=== PATIENT | female | born 2000 | race Caucasian/White ===

== ENCOUNTER → 2022-03-01 13:25 | Outpatient (BNVA) | payer OTHER, SELFPAY | PROVIDERS: Visit Provider Nurse Practitioner Women's Health | DX: N92.6 Irregular menstruation, unspecified (principal) | CPT/HCPCS: 81025 ==

== ENCOUNTER → 2022-03-09 07:51 | Outpatient (BNVA) | payer OTHER, SELFPAY | PROVIDERS: Visit Provider Nurse Practitioner Women's Health | DX: Z36.87 Encounter for antenatal screening for uncertain dates (principal) | CPT/HCPCS: 76801; 76817 ==

== ENCOUNTER → 2022-03-17 13:13 | Outpatient (BNVA) | payer OTHER, SELFPAY | PROVIDERS: Visit Provider Nurse Practitioner Women's Health | DX: Z34.90 Encounter for supervision of normal pregnancy, unspecified, unspecified trimester (principal); F41.9 Anxiety disorder, unspecified; F32.A Depression, unspecified; Z34.80 Encounter for supervision of other normal pregnancy, unspecified trimester; O99.210 Obesity complicating pregnancy, unspecified trimester; Z20.828 Contact with and (suspected) exposure to other viral communicable diseases | CPT/HCPCS: 80307; 82950; 84315; 85027; 86592; 86762; 86787; 86803; 86850; 86900; 87086; 87340; 87806 ==

== ENCOUNTER → 2022-04-07 14:07 | Outpatient (BNVA) | payer OTHER, SELFPAY | PROVIDERS: Visit Provider Obstetrics & Gynecology | DX: Z34.80 Encounter for supervision of other normal pregnancy, unspecified trimester (principal) | CPT/HCPCS: 84315; 87491; 87591; 87661; 88175 ==

== ENCOUNTER → 2022-05-12 13:15 | Outpatient (BNVA) | payer OTHER, SELFPAY | PROVIDERS: Visit Provider Nurse Practitioner Women's Health | DX: Z34.90 Encounter for supervision of normal pregnancy, unspecified, unspecified trimester (principal) | CPT/HCPCS: 82105; 84315 ==

== ENCOUNTER → 2022-06-06 10:59 | Outpatient (BNVA) | payer OTHER, SELFPAY | PROVIDERS: Visit Provider Obstetrics & Gynecology | DX: Z36.87 Encounter for antenatal screening for uncertain dates (principal) | CPT/HCPCS: 76805 ==

== ENCOUNTER → 2022-06-13 13:20 | Outpatient (BNVA) | payer OTHER, SELFPAY | PROVIDERS: Visit Provider Obstetrics & Gynecology | DX: Z34.90 Encounter for supervision of normal pregnancy, unspecified, unspecified trimester (principal) | CPT/HCPCS: 80053; 82570; 84156; 84315; 85025 ==

== ENCOUNTER 2022-06-25 14:10 | Outpatient (CLI) | payer OTHER, SELFPAY ==
[2022-06-25] VITALS (14 sets, daily range): BP systolic 127–164; BP diastolic 73–94; PULSE 56–85; RESP 16; BMI 37.1
[2022-06-25 14:58] LABS: Basophils % 0.3 %; Eosinophils # 0.4 10^3/uL (0.0-0.8); Eosinophils % 2.9 %; Hematocrit 31.9 % (37.0-47.0); Hemoglobin 10.7 g/dL (11.5-15.3); Lymphocytes # 2.1 10^3/uL (0.8-4.8); Lymphocytes % 17.3 %; Mean Corpuscular HGB Conc 33.5 g/dL (30.0-36.0); Mean Corpuscular Hemoglobin 31.9 pg (28.0-34.0); Mean Corpuscular Volume 95.2 fl (81-99); Mean Platelet Volume 10.4 fL (7.4-10.4); Monocytes # 0.7 10^3/uL (0.2-0.9); Monocytes % 5.5 %; Neutrophils # 8.74 10^3/uL (1.8-7.7); Neutrophils % 73.6 %; Nucleated Red Blood Cells % 0 %; Platelet Count 248 10^3/cmm (130-400); Red Blood Count 3.35 10^6/uL (4.1-5.3); Red Cell Distribution Width 12.1 % (12.1-15.1); White Blood Count 11.9 10^3/uL (4.0-10.0)
[2022-06-25 15:08] LABS: Amorphous Sediment Urine TRACE /hpf; Bacteria Urine TRACE /hpf; Bilirubin Urine Neg (Negative); Blood Urine Neg (Negative); Glucose Urine UA Norm (Normal); Ketones Urine 1+ (Negative); Leukocyte Esterase Urine Negative (Negative); Nitrate Urine Negative (Negative); Protein Urine Neg (Negative); RBC Urine RARE /hpf (0-2); Specific Gravity, Urine 1.015 (1.005-1.030); Squamous Epithelial Cell Urine 0-4 /hpf (0-5); Urine Appearance Hazy (CLEAR); Urine Color Yellow (Yellow); Urobilinogen Urine Norm (Negative); WBC Urine RARE /hpf (0-5); pH Urine 7 (5-7)
--- NOTE | 2022-06-25 15:56 | PM.OBTRLD ---
OB L&D Triage Visit Information: Date of evaluation: 06/25/22 Comments/Additional reason(s) for visit: Left sided pain with nausea and vomiting Evaluation: Baseline heart rate: 130 Laboratory results: Laboratory Tests 06/25/22 06/25/22 14:50 14:50 WBC 11.9 H RBC 3.35 L Hgb 10.7 L Hct 31.9 L MCV 95.2 MCH 31.9 MCHC 33.5 RDW 12.1 Plt Count 248 MPV 10.4 Neut % (Auto) 73.6 Lymph % (Auto) 17.3 Keith % (Auto) 5.5 Eos % (Auto) 2.9 Baso % (Auto) 0.3 Neut # (Auto) 8.74 H Lymph # (Auto) 2.1 Keith # (Auto) 0.7 Eos # (Auto) 0.4 Baso # (Auto) 0.0 Nucleated RBC % (a uto) 0 Nucleated RBCs # 0.0 Urine Color Yellow Urine Appearance Hazy A Urine pH 7 Ur Specific Gravit y 1.015 Urine Protein Neg Urine Glucose (UA) Norm Urine Ketones 1+ H Urine Blood Neg Urine Nitrate Negative Urine Bilirubin Neg Urine Urobilinogen Norm Ur Leukocyte Roula ase Negative Urine RBC Rare Urine WBC Rare Ur Squamous Epith Cells 0-4 H Amorphous Sediment Trace Urine Bacteria Trace Vital signs: Vital Signs - 24 hr 06/25/22 14:31 06/25/22 14:40 06/25/22 14:55 Pulse Rate 68 56 L 78 Respiratory Rate Blood Pressure 136/94 127/73 139/77 06/25/22 15:10 06/25/22 15:25 06/25/22 15:40 Pulse Rate 71 62 71 Respiratory Rate Blood Pressure 146/79 131/80 164/89 06/25/22 15:41 06/25/22 14:38 Pulse Rate 75 Respiratory Rate 16 Blood Pressure 150/90 Comments: 22yo C. female at 23.3 wk IUP has been receiving PNC with Dr. Garrido, c/o left sided pain that starts at her breast and extends to pubic area with nausea and vomiting. Pt has been talking BP reading at home and reports elevated office BP readings. Today BP has been elevated on multiple readings as well. Pt admits to occassional HAs but not daily. Pt gives hx of Renal stones (Aug). Her Exam- palpation elicits no pain or guarding on left nor right sides and no CVA tenderness. And lab indicates nothing specific. Discussed with pt need to continue BP monitoring and to start BP med Labetolol 100mg BID, and 81mg ASA daily. Discussed 24hr urine collection. Care MATTHIAS Calculator Estimated Delivery Date Method Current WG Current Estimate 10/19/22 Ultrasound #2 23w 3d Other Estimates 10/16/22 LMP (Certain) 23w 6d 10/26/22 Ultrasound #1 22w 3d Specific Issues/Plans Partner hx of HSV: never had an outbreak; start suppression at 36 weeks unless symptoms ANXIETY/DEPRESSION SIZE >DATES; MATTHIAS based on 7 week sono OBESITY Final Diagnosis Final Diagnosis (1) 23 weeks gestation of : Status: Acute Code(s): Z3A.23 - 23 weeks gestation of (2) Elevated blood pressure complicating in second trimester, antepartum: Plan: 1. Lab- CBC,CMP,24hr urine for Protein and Creatinine. 2. 81mg ASA daily 3. Labetolol 100mg BID 4. F/U 1wk with Dr. Garrido Status: Acute Code(s): O16.2 - Unspecified maternal hypertension, second trimester (3) Nausea/vomiting in : Plan: [place] diet Status: Acute Code(s): O21.9 - Vomiting of , unspecified Coding Level of Care Code Acute Document Management Specialist for Chg Fwd Diagnoses 23 weeks gestation of Z3A.23 Elevated blood pressure complicating in second trimester, antepartum O16.2 Nausea/vomiting in O21.9
[2022-06-25] MEDS: labetalol 200 mg Tablet 100 MG PO (15:59)
[2022-06-25 16:12] LABS: Alanine Aminotransferase 19 U/L (0-33); Albumin Level 3.4 g/dL (3.5-5.2); Alkaline Phosphatase 85 U/L (35-105); Anion Gap 11.1 (5-19); Aspartate Amino Transferase 13 U/L (0-32); Blood Urea Nitrogen 5 mg/dL (6-20); Calcium 9.1 mg/dL (8.5-10.5); Carbon Dioxide 26 mmol/L (22-29); Chloride 97 mmol/L (98-107); Globulin 3.3 g/dL (1.3-4.6); Glomerular Filtration Rate 151.6 mL/min (90-130); Glucose 78 mg/dL (65-115); Osmolality Calculated 268 mOsm/kg (285-295); Potassium 3.1 mmol/L (3.5-5.1); Sodium 131 mmol/L (136-145); Total Bilirubin 0.3 mg/dL (0.15-1.2); Total Protein 6.7 g/dL (6.6-8.7)
== END 2022-06-25 17:18 | disposition home or self-care (01) ==
LOC: OPOB 14:18 → OBGYN 14:19
PROVIDERS: Visit Provider Obstetrics & Gynecology
DX: O26.899 Other specified pregnancy related conditions, unspecified trimester (principal); Z3A.00 Weeks of gestation of pregnancy not specified; R10.9 Unspecified abdominal pain
CPT/HCPCS: 12345; 36415; 80053; 81001; 85025; 99211

== ENCOUNTER 2022-07-12 14:38 | Emergency (ER) | payer OTHER, MEDICAID, SELFPAY ==
[2022-07-12 14:53] VITALS: BP 134/80; PULSE 90; RESP 17; TEMP 36.6; O2SAT 97; BMI 37.1
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
[2022-07-12 17:25] VITALS: PULSE 76; RESP 16; O2SAT 99
[2022-07-12 17:50] VITALS: PULSE 88; RESP 16; O2SAT 97
[2022-07-12] MEDS: clindamycin 150 mg Capsule 300 MG PO (17:55)
[2022-07-12 17:59] VITALS: PULSE 90; RESP 16; O2SAT 100
--- NOTE | 2022-07-13 09:34 | DCPLANNER ---
Addendum entered by Anne Marie Guerra 07/13/22 11:20: solar manager received the following message from general surgery regarding follow up appointment: Due to patient having [facility], please send elsewhere.. Dr. Sharma cannot see [facility] patients at this time.. renal case manager called and explained this to the patient, and faxed patients information to the office of . Patients information will be reviewed, clinic will call patient with appointment information. Original Note: solar manager had message to schedule a follow up appointment for patient with general surgery. solar manager sent patients information to the front office staff at general surgery. Patients information will be printed and reviewed. Clinic will call patient with appointment information.
== END 2022-07-12 18:01 | disposition home or self-care (01) ==
PROVIDERS: Emergency Provider Nurse Practitioner Family
DX: L05.01 Pilonidal cyst with abscess (principal); Z87.891 Personal history of nicotine dependence
CPT/HCPCS: 10080; 99283

== ENCOUNTER 2022-07-31 09:32 | Outpatient (CLI) | payer OTHER, SELFPAY ==
[2022-06-25 14:38] VITALS: RESP 16
[2022-07-31] VITALS (7 sets, daily range): BP systolic 137–142; BP diastolic 63–86; PULSE 70–85; RESP 18; TEMP 36.7; BMI 37.3
[2022-07-31 10:27] LABS: Bacteria Urine 2+ /hpf; Bilirubin Urine Neg (Negative); Blood Urine Neg (Negative); Glucose Urine UA Norm (Normal); Ketones Urine Negative (Negative); Leukocyte Esterase Urine Negative (Negative); Nitrate Urine Negative (Negative); Protein Urine Neg (Negative); Squamous Epithelial Cell Urine 15-25 /hpf (0-5); Sulfosalicylic Acid Urine Negative (Negative); Urine Appearance SL Hazy (CLEAR); Urine Color Yellow (Yellow); Urobilinogen Urine Norm (Negative); pH Urine 8 (5-7)
[2022-07-31 10:28] LABS: Add Urine Culture? No
== END 2022-07-31 11:40 | disposition home or self-care (01) ==
LOC: OPOB 09:33 → OBGYN 09:39
PROVIDERS: Visit Provider Obstetrics & Gynecology
DX: O46.90 Antepartum hemorrhage, unspecified, unspecified trimester (principal); Z3A.00 Weeks of gestation of pregnancy not specified; R10.9 Unspecified abdominal pain; R42 Dizziness and giddiness
CPT/HCPCS: 59025; 81001; 99211

== ENCOUNTER → 2022-08-08 16:59 | Outpatient (BNVA) | payer OTHER, SELFPAY | PROVIDERS: Visit Provider Obstetrics & Gynecology | DX: O36.0990 Maternal care for other rhesus isoimmunization, unspecified trimester, not applicable or unspecified (principal); Z3A.00 Weeks of gestation of pregnancy not specified | CPT/HCPCS: 82950; 86850 ==

== ENCOUNTER 2022-08-22 12:27 | Outpatient (CLI) | payer OTHER, SELFPAY ==
[2022-08-22] VITALS (11 sets, daily range): BP systolic 130–162; BP diastolic 83–106; PULSE 56–72; RESP 16; BMI 37.9
[2022-08-22 13:18] LABS: Add Urine Microscopic? NO; Charge for UA Resulting for Rev
[2022-08-22 13:28] LABS: Basophils # 0.1 10^3/uL (0.0-0.1); Basophils % 0.4 %; Eosinophils # 0.6 10^3/uL (0.0-0.8); Eosinophils % 5.7 %; Hematocrit 31.9 % (37.0-47.0); Hemoglobin 10.7 g/dL (11.5-15.3); Lymphocytes # 2.2 10^3/uL (0.8-4.8); Lymphocytes % 19.6 %; Mean Corpuscular HGB Conc 33.5 g/dL (30.0-36.0); Mean Corpuscular Hemoglobin 31.3 pg (28.0-34.0); Mean Corpuscular Volume 93.3 fl (81-99); Mean Platelet Volume 10.8 fL (7.4-10.4); Monocytes # 0.5 10^3/uL (0.2-0.9); Monocytes % 4.2 %; Neutrophils # 7.88 10^3/uL (1.8-7.7); Neutrophils % 69.7 %; Nucleated Red Blood Cells % 0 %; Platelet Count 251 10^3/cmm (130-400); Red Blood Count 3.42 10^6/uL (4.1-5.3); Red Cell Distribution Width 12.2 % (12.1-15.1); White Blood Count 11.3 10^3/uL (4.0-10.0)
[2022-08-22 13:31] LABS: Bilirubin Urine Neg (Negative); Blood Urine Neg (Negative); Glucose Urine UA Norm (Normal); Ketones Urine Negative (Negative); Leukocyte Esterase Urine Negative (Negative); Nitrate Urine Negative (Negative); Protein Urine Neg (Negative); Specific Gravity, Urine 1.005 (1.005-1.030); Urine Appearance Clear (CLEAR); Urine Color Straw (Yellow); Urobilinogen Urine Norm (Negative); pH Urine 7 (5-7)
[2022-08-22 13:38] LABS: Alanine Aminotransferase 9 U/L (0-33); Albumin Level 3.3 g/dL (3.5-5.2); Alkaline Phosphatase 131 U/L (35-105); Anion Gap 13.6 (5-19); Aspartate Amino Transferase 11 U/L (0-32); Blood Urea Nitrogen 7 mg/dL (6-20); Calcium 8.3 mg/dL (8.5-10.5); Carbon Dioxide 21 mmol/L (22-29); Chloride 104 mmol/L (98-107); Globulin 2.9 g/dL (1.3-4.6); Glomerular Filtration Rate 151.6 mL/min (90-130); Glucose 70 mg/dL (65-115); Osmolality Calculated 276 mOsm/kg (285-295); Potassium 3.6 mmol/L (3.5-5.1); Sodium 135 mmol/L (136-145); Total Bilirubin 0.2 mg/dL (0.15-1.2); Total Protein 6.2 g/dL (6.6-8.7); Uric Acid 5.4 mg/dL (2.4-5.7)
[2022-08-22 13:42] LABS: Urine Creatinine 19 mg/dL (28-217); Urine Protein Random 4 mg/dL
[2022-08-22 13:49] LABS: UPRO/UCREAT Ratio 0.21 mg/mg CR
--- NOTE | 2022-08-22 15:23 | PC.NURSE ---
Patient verbalized understanding of all discharge instructions. Patient verbalized understanding of keeping blood pressure logs, to follow up in office with Dr. Garrido next week, to be compliant with prescription medication for blood pressure. SARAH GUILLEN
== END 2022-08-22 15:23 | disposition home or self-care (01) ==
LOC: OPOB 12:33 → OBGYN 12:35
PROVIDERS: Visit Provider Obstetrics & Gynecology
DX: O26.899 Other specified pregnancy related conditions, unspecified trimester (principal); Z3A.00 Weeks of gestation of pregnancy not specified
CPT/HCPCS: 59025; 80053; 81003; 82570; 84156; 84550; 85025; 99211

== ENCOUNTER 2022-08-25 10:13 | Outpatient (CLI) | payer OTHER, SELFPAY ==
[2022-08-25] VITALS (11 sets, daily range): BP systolic 131–150; BP diastolic 86–110; PULSE 60–80; RESP 17; TEMP 35.8; BMI 37.9
[2022-08-25 11:09] LABS: Add Urine Microscopic? NO; Charge for UA Resulting for Rev
[2022-08-25 11:11] LABS: Basophils % 0.4 %; Eosinophils # 0.6 10^3/uL (0.0-0.8); Eosinophils % 6.1 %; Hematocrit 32.9 % (37.0-47.0); Hemoglobin 10.9 g/dL (11.5-15.3); Lymphocytes % 19.4 %; Mean Corpuscular HGB Conc 33.1 g/dL (30.0-36.0); Mean Corpuscular Hemoglobin 30.8 pg (28.0-34.0); Mean Corpuscular Volume 92.9 fl (81-99); Mean Platelet Volume 10.7 fL (7.4-10.4); Monocytes # 0.5 10^3/uL (0.2-0.9); Monocytes % 4.6 %; Neutrophils % 69.2 %; Nucleated Red Blood Cells % 0 %; Platelet Count 283 10^3/cmm (130-400); Red Blood Count 3.54 10^6/uL (4.1-5.3); Red Cell Distribution Width 12.1 % (12.1-15.1); White Blood Count 10.1 10^3/uL (4.0-10.0)
[2022-08-25 11:18] LABS: Urine Color Yellow (Yellow)
[2022-08-25 11:19] LABS: Bilirubin Urine Neg (Negative); Blood Urine Neg (Negative); Glucose Urine UA Norm (Normal); Ketones Urine Negative (Negative); Leukocyte Esterase Urine Negative (Negative); Nitrate Urine Negative (Negative); Protein Urine Neg (Negative); Specific Gravity, Urine 1.015 (1.005-1.030); Urine Appearance Clear (CLEAR); Urobilinogen Urine Norm (Negative); pH Urine 7 (5-7)
[2022-08-25 11:28] LABS: Amphetamines Screen Urine Negative (Negative); Barbiturates Screen Urine Negative (Negative); Benzodiazepines Screen Urine Negative (Negative); Cocaine Screen Urine Negative (Negative); Opiate Screen Urine Negative (Negative); PCP Screen Urine Negative (Negative); THC Screen Urine Positive (Negative)
[2022-08-25 11:33] LABS: Alanine Aminotransferase 11 U/L (0-33); Albumin Level 3.3 g/dL (3.5-5.2); Alkaline Phosphatase 144 U/L (35-105); Anion Gap 14.7 (5-19); Aspartate Amino Transferase 15 U/L (0-32); Blood Urea Nitrogen 5 mg/dL (6-20); Calcium 9.1 mg/dL (8.5-10.5); Carbon Dioxide 22 mmol/L (22-29); Chloride 103 mmol/L (98-107); Glomerular Filtration Rate 151.6 mL/min (90-130); Glucose 83 mg/dL (65-115); Osmolality Calculated 278 mOsm/kg (285-295); Potassium 3.7 mmol/L (3.5-5.1); Sodium 136 mmol/L (136-145); Total Bilirubin 0.3 mg/dL (0.15-1.2); Total Protein 6.3 g/dL (6.6-8.7); Uric Acid 5.1 mg/dL (2.4-5.7)
[2022-08-25 11:38] LABS: Urine Creatinine 222 mg/dL (28-217)
[2022-08-25 11:39] LABS: Urine Protein Random 22 mg/dL
== END 2022-08-25 12:57 | disposition home or self-care (01) ==
LOC: OPOB 10:14 → OBGYN 10:15
PROVIDERS: Visit Provider Obstetrics & Gynecology
DX: O16.9 Unspecified maternal hypertension, unspecified trimester (principal); Z3A.00 Weeks of gestation of pregnancy not specified
CPT/HCPCS: 36415; 59025; 80053; 80306; 81003; 82570; 84156; 84550; 85025; 99211

== ENCOUNTER 2022-09-04 20:40 | Emergency (ER) | payer OTHER, SELFPAY ==
[2022-09-04 20:46] VITALS: BP 158/107; PULSE 87; RESP 20; TEMP 36.6; O2SAT 98; BMI 37.1
--- NOTE | 2022-09-04 21:27 | ED_ITS ---
HPI - Skin/Abscess/Foreign Bdy General: Chief complaint: Skin/Abscess/Foreign Body Stated complaint: knot on back Time Seen by Provider: 09/04/22 21:11 Source: patient Mode of arrival: ambulatory Limitations: no limitations History of Present Illness: 22-year-old female with history of pilonidal cyst in the past states she had a drain multiple times she postop surgery a year ago but ended up not having it she states she has had another cyst develop over the last 4 to 5 days. She denies any fever she does have pain no drainage at this time Associated symptoms: Deny chills, fever(s), nausea or vomiting Review of Systems Const: Denies: fever(s), chills, body aches or change in appetite Eyes: Denies: blurry vision or eye discomfort ENMT: Denies: throat pain or dental pain Card: Denies: chest pain Resp: Denies: dyspnea GI: Denies: abdominal pain, nausea, vomiting or diarrhea : Denies: dysuria Musc: Denies: neck pain or back pain Skin/Breast: Denies: rash Neuro: Denies: headache(s) Psych: Denies: depression Juni/Lymph: Denies: easy bruising All/Imm: Denies: urticaria PFSH ED PFSH: Medical History Anxiety and depression She was diagnosed and treated with lexapro. She only used this for about 2 weeks, and stopped due to n/v. She feels managed without medication. No pertinent past medical history neghx: htn,dm,thyroid,dvt/pe PCP: None Surgical History Hx of wisdom tooth extraction (~08/2021) Family History Grandmother Breast cancer Maternal Great Grandmother-- dx age 50 Paternal Grandmother--dx age 40's Father Colon cancer dx age late 40s Hypercholesteremia Hypertension Denies family history of Ovarian cancer Diabetes Heart disease Uterine cancer Thyroid disease Stroke Social History Smoking and tobacco status: former smoker Physical Exam Const: COMMON NORMALS: no acute distress and patient oriented x3 HENMT: COMMON NORMALS: normocephalic, atraumatic and Normal external nose present HEAD & SCALP: normocephalic and atraumatic NOSE: Normal external nose present Eye: COMMON NORMALS: conjunctivae normal CONJUNCTIVA: Yes conjunctivae normal Neck/C-Spine: COMMON NORMALS: supple Chest: COMMONS NORMALS: normal inspection of the chest Resp: COMMON NORMALS: normal respiratory effort Cardio: COMMON NORMALS: regular rate RATE: regular rate GI: INSPECTION: Yes normal to inspection Back/Pelvis: OTHER: pilonidalcyst noted to lower back Extremity: COMMON NORMALS: normal to inspection Neuro: COMMON NORMALS: patient oriented x3 Psych: COMMON NORMALS: mental status grossly normal Skin: COMMON NORMALS: no rashes or lesions noted GENERAL SKIN EXAM: no rashes or lesions noted Procedures Abscess I/D Site: other (pilonidal) Local Anesthetic: lidocaine 1% Amount of anesthesia used (mL): 8 Technique: incised with #11 blade Packing used?: iodoform Course Vital Signs: Vital signs: Vital Signs Temperature 97.8 F 09/04/22 20:46 Pulse Rate 87 09/04/22 20:46 Respiratory Rate 20 H 09/04/22 20:46 Blood Pressure 158/107 09/04/22 20:46 Pulse Oximetry 98 09/04/22 20:46 Oxygen Delivery Me thod 09/04/22 20:46 MDM - Skin/Abscess/Foreign Bdy Medicial Decision Making Patient presents here with a pilonidal abscess that I incised and drained we will place her on clindamycin as she is we will get her follow-up with general surgery. Discharge Plan Discharge Patient Disposition: Home Clinical Impression: Pilonidal abscess Condition: Stable Prescriptions: New clindamycin HCl 300 mg capsule 300 mg PO Q8H 7 Days Qty: 21 0RF No Action labetalol 200 mg tablet 200 mg PO BID Qty: 60 2RF PNV #[id number] acid-dha 35 mg iron-5 mg iron-1 mg Capsule 1 cap PO DAILY Discharge Orders: Discharge ED (Routine); Ordered 09/04/22 Ordered By: Luciano Veliz Referrals: Nate Sharma DO [Physician] - 1-3 days Discharge Diet: Advance as tolerated Discharge Activity: Resume usual activity Patient Instructions: Pilonidal Cyst (ED), Opioid Safety Coding Level of Care Code ED Electric Locomotive Firer/Fireman for Jamila Horan
[2022-09-04 21:53] VITALS: BP 154/92; PULSE 72; RESP 16; O2SAT 97
--- NOTE | 2022-09-05 11:25 | DCPLANNER ---
Addendum entered by Anne Marie Guerra 09/06/22 14:31: payment manager called [facility] to confirm that facility had received patients information. payment manager was told that facility did received patients information. Addendum entered by Anne Marie Guerra 09/06/22 13:40: payment manager received the following message from the general surgery clinic regarding follow up appointment: Patient has [facility], please refer elsewhere. payment manager called patient and explained this and asked patient where she would like the referral sent to [facility] or [facility]. Patient stated that she would like to be referred to [facility]. payment manager faxed patients information to [facility] general surgery. Patients information will be reviewed, clinic will call patient with appointment information. Original Note: payment manager had message to schedule a follow up appointment for patient with general surgery. payment manager sent patients information to the front office staff at general surgery. Patients information will be printed and reviewed. Clinic will call patient with appointment information.
== END 2022-09-04 21:58 | disposition home or self-care (01) ==
PROVIDERS: Emergency Provider Emergency Medicine
DX: L05.01 Pilonidal cyst with abscess (principal)
CPT/HCPCS: 10080; 99283

== ENCOUNTER → 2022-09-05 11:10 | Outpatient (BNVA) | payer OTHER, SELFPAY | PROVIDERS: Visit Provider Obstetrics & Gynecology | DX: O16.3 Unspecified maternal hypertension, third trimester (principal); Z3A.32 32 weeks gestation of pregnancy | CPT/HCPCS: 76816; 76819; 82570; 84156; 84315 ==

== ENCOUNTER 2022-09-09 08:48 | Observation (INO) | payer BC, OTHER, MEDICAID, SELFPAY ==
[2022-09-09] VITALS (17 sets, daily range): BP systolic 112–160; BP diastolic 64–118; PULSE 64–86; RESP 16–18; TEMP 36.4–36.7; O2SAT 96–99; BMI 37.1
[2022-09-09 10:17] LABS: Basophils # 0.1 10^3/uL (0.0-0.1); Basophils % 0.5 %; Eosinophils # 0.4 10^3/uL (0.0-0.8); Eosinophils % 2.9 %; Hematocrit 32.8 % (37.0-47.0); Hemoglobin 10.8 g/dL (11.5-15.3); Lymphocytes # 1.9 10^3/uL (0.8-4.8); Lymphocytes % 13.6 %; Mean Corpuscular HGB Conc 32.9 g/dL (30.0-36.0); Mean Corpuscular Hemoglobin 30.8 pg (28.0-34.0); Mean Corpuscular Volume 93.4 fl (81-99); Mean Platelet Volume 11.2 fL (7.4-10.4); Monocytes # 0.8 10^3/uL (0.2-0.9); Monocytes % 5.8 %; Neutrophils # 10.69 10^3/uL (1.8-7.7); Neutrophils % 76.8 %; Nucleated Red Blood Cells % 0 %; Platelet Count 270 10^3/cmm (130-400); Red Blood Count 3.51 10^6/uL (4.1-5.3); Red Cell Distribution Width 12.2 % (12.1-15.1); White Blood Count 13.9 10^3/uL (4.0-10.0)
--- NOTE | 2022-09-09 10:19 | W.ED.BACK ---
HPI - Back Pain/Injury General: Chief Complaint: Back Pain/Injury Stated Complaint: tailbone pain/poss cyst Time Seen by Provider: 09/09/22 09:01 Source: patient Mode of arrival: ambulatory Limitations: no limitations History of Present Illness: Patient presents to the emergency department today for evaluation treatment of return/worsening redness, swelling, and pain of her gluteal cleft. Patient was seen and evaluated here in the emergency department on 09/04 where she had an I&D of a pilonidal cyst. Patient reports history of recurrent pilonidal cysts and originally was supposed to have surgery in the past but, canceled. Patient was started on clindamycin and another referral to general surgery was initiated on her behalf. Incidentally, patient is currently and is being followed by PATIENT ACCESS REGISTRAR. Patient seem to have initial improvement over the first 24 hours after starting antibiotics however, she is now noticing an area of redness, swelling, tenderness developing just above her I&D incision. She also reports a couple of red spots developing on her left buttock. She has not had any recorded fevers. She has not had any vomiting. She reports she is tolerating her clindamycin without any GI upset. Review of Systems General: Reports: 10 or more systems reviewed and unremarkable except in HPI and below Skin/Breast: Reports: erythema, skin pain, skin tenderness and skin swelling [facility] ED PFSH: Medical History Anxiety and depression She was diagnosed and treated with lexapro. She only used this for about 2 weeks, and stopped due to n/v. She feels managed without medication. No pertinent past medical history neghx: htn,dm,thyroid,dvt/pe PCP: None Surgical History Hx of wisdom tooth extraction (~08/2021) Family History Grandmother Breast cancer Maternal Great Grandmother-- dx age 50 Paternal Grandmother--dx age 40's Father Colon cancer dx age late 40s Hypercholesteremia Hypertension Denies family history of Ovarian cancer Diabetes Heart disease Uterine cancer Thyroid disease Stroke Physical Exam Const: COMMON NORMALS: no acute distress, average body habitus and patient oriented x3 HENMT: COMMON NORMALS: normocephalic, atraumatic, hearing grossly normal bilaterally, Normal external nose present and moist oral mucous membranes HEAD & SCALP: normocephalic and atraumatic NOSE: Normal external nose present Eye: COMMON NORMALS: Equal, round and reactive pupils present, EOMs intact bilaterally and conjunctivae normal CONJUNCTIVA: Yes conjunctivae normal PUPIL: Yes Equal, round and reactive pupils present Neck/C-Spine: COMMON NORMALS: no JVD Lymph: LYMPHATIC: no lymphadenopathy noted Resp: COMMON NORMALS: normal respiratory effort, No retractions and No use of accessory muscles Cardio: COMMON NORMALS: no JVD, regular rate and regular rhythm RATE: regular rate RHYTHM: regular rhythm GI: COMMON NORMALS: Normal to inspection, nondistended, normoactive bowel sounds present : COMMON NORMALS: Yes no CVA tenderness BLADDER/KIDNEY EXAM: Yes no CVA tenderness Back/Pelvis: COMMON NORMALS: no CVA tenderness and thoraco-lumbar ROM normal Extremity: COMMON NORMALS: normal to inspection, full ROM and capillary refill normal Neuro: COMMON NORMALS: patient oriented x3 Psych: COMMON NORMALS: mental status grossly normal, Normal thought process present, cooperative, normal affect and activity/motor behavior normal THOUGHT PROCESS: Normal thought process present Skin: NARRATIVE SKIN EXAM: Patient has a well-healing incision to the superior portion of her gluteal cleft. Wound edges are approximated and there appears to be good wound edge adherence. There is no redness directly at the site of the incision however, there is a large area of erythema just superior to this incision approximately 6 cm in diameter. This area is extremely tender to touch, hot to touch, and indurated. Patient has approximately 3 spots of erythema on the left mid to medial buttocks region which are soft-without induration, and without any signs of pustules. Course Vital Signs: Vital signs: Vital Signs Temperature 97.8 F 09/09/22 08:53 Pulse Rate 73 09/09/22 10:57 Respiratory Rate 17 09/09/22 10:57 Blood Pressure 151/118 09/09/22 10:57 Pulse Oximetry 97 09/09/22 10:57 Oxygen Delivery Me thod 09/09/22 10:57 MDM - Back Pain/Injury Medical Decision Making Patient presents to the emergency department today for evaluation treatment of return of redness, swelling, and tenderness to a previous pilonidal abscess site. On inspection, the patient's I&D site appears to be healing well without any surrounding erythema. However, there is a large area of induration, warmth, and redness superior to her I&D site. There are also several red spots developing on her left gluteal region. Patient has been taking her clindamycin as prescribed. Given that the patient appears to have spreading cellulitis which most likely is deep and, has concern for potential tunneling, I did discuss with the patient concerns regarding the need for either surgical evaluation or inpatient treatment. Lab work is otherwise unremarkable. She does have a bump in her white count but, patient is . No other acute concerns on lab work. I did reach out to general surgery-Dr. Dean who saw and evaluated the patient at bedside for admission direct to OR. We will defer care and further treatment and intervention of this patient to the general surgery department at this time. Differential Diagnosis Likely lumbar radiculopathy (labor pains, cellulitis, pylonidal abscess), strain of lumbar region and pyelonephritis Labs 09/09/22 09:41 09/09/22:41 Laboratory Results WBC 13.9 10^3/uL (4.0-10.0) H 09/09/22: RBC 3.51 10^6/uL (4.1-5.3) L 09/09/22:41 Hgb 10.8 g/dL (11.5-15.3) L 09/09/22:41 Hct 32.8 % (37.0-47.0) L 09/09/22:41 MCV 93.4 fl (81-99) 09/09/22:41 MCH 30.8 pg (28.0-34.0) 09/09/22: MCHC 32.9 g/dL (30.0-36.0) 09/09/22: RDW 12.2 % (12.1-15.1) 09/09/22:41 Plt Count 270 10^3/cmm (130-400) 09/09/22:41 MPV 11.2 fL (7.4-10.4) H 09/09/22: Neut % (Auto) 76.8 % 09/09/22 09:41 Lymph % (Auto) 13.6 % 09/09/22 09:41 [place] % (Auto) 5.8 % 09/09/22 09:41 Eos % (Auto) 2.9 % 09/09/22 09:41 Baso % (Auto) 0.5 % 09/09/22 09:41 Neut # (Auto) 10.69 10^3/uL (1.8-7.7) H 09/09/22 09:41 Lymph # (Auto) 1.9 10^3/uL (0.8-4.8) 09/09/22 09:41 [place] # (Auto) 0.8 10^3/uL (0.2-0.9) 09/09/22 09:41 Eos # (Auto) 0.4 10^3/uL (0.0-0.8) 09/09/22 09:41 Baso # (Auto) 0.1 10^3/uL (0.0-0.1) 09/09/22 09:41 Nucleated RBC % (auto) 0 % 09/09/22 09:41 Nucleated RBCs # 0.0 /100WBC 09/09/22 09:41 Sodium 133 mmol/L (136-145) L 09/09/22 09:41 Potassium 4.0 mmol/L (3.5-5.1) 09/09/22 09:41 Chloride 102 mmol/L (98-107) 09/09/22 09:41 Carbon Dioxide 20 mmol/L (22-29) L 09/09/22 09:41 Anion Gap 15.0 (5-19) 09/09/22 09:41 BUN 9 mg/dL (6-20) 09/09/22 09:41 Creatinine 0.7 mg/dL (0.5-0.9) 09/09/22 09:41 GFR Calculation 102.8 mL/min (90-130) 09/09/22 09:41 Glucose 96 mg/dL (65-115) 09/09/22 09:41 Calculated Osmolality 275 mOsm/kg (285-295) L 09/09/22 09:41 Calcium 8.7 mg/dL (8.5-10.5) 09/09/22 09:41 Total Bilirubin 0.2 mg/dL (0.15-1.2) 09/09/22 09:41 AST 11 U/L (0-32) 09/09/22 09:41 ALT 9 U/L (0-33) 09/09/22 09:41 Alkaline Phosphatase 166 U/L (35-105) H 09/09/22 09:41 Total Protein 6.5 g/dL (6.6-8.7) L 09/09/22 09:41 Albumin 3.1 g/dL (3.5-5.2) L 09/09/22 09:41 Globulin 3.4 g/dL (1.3-4.6) 09/09/22 09:41 Urine Color Dark yellow (Yellow) 09/09/22 10:10 Urine Appearance Hazy (CLEAR) A 09/09/22 10:10 Urine pH 5 (5-7) 09/09/22 10:10 Ur Specific [place] 1.025 (1.005-1.030) 09/09/22 10:10 Urine Protein Neg (Negative) 09/09/22 10:10 Urine Glucose (UA) Norm (Normal) 09/09/22 10:10 Urine Ketones Negative (Negative) 09/09/22 10:10 Urine Blood Neg (Negative) 09/09/22 10:10 Urine Nitrate Negative (Negative) 09/09/22 10:10 Urine Bilirubin Neg (Negative) 09/09/22 10:10 Urine Urobilinogen 1 mg/dL (Negative) H 09/09/22 10:10 Ur Leukocyte Esterase Negative (Negative) 09/09/22 10:10 Urine RBC None /hpf (0-2) 09/09/22 10:10 Urine WBC Rare /hpf (0-5) 09/09/22 10:10 Ur Squamous Epith Cells 15-25 /hpf (0-5) H 09/09/22 10:10 Ur Transition Epith Cell 0-4 /hpf 09/09/22 10:10 Amorphous Sediment Not Reportable 09/09/22 10:10 Urine Bacteria 2+ /hpf (NONE) H 09/09/22 10:10 Urine Mucus 1+ /hpf 09/09/22 10:10 Discharge Plan Discharge Patient Disposition: Placed in Observation Clinical Impression: Pilonidal abscess Condition: Stable Discharge Diet: As Directed Discharge Activity: Limit activity as instructed Coding Level of Care Code ED Commercial Fishing Vessel Operator for Johanag Aung
[2022-09-09 10:21] LABS: Alanine Aminotransferase 9 U/L (0-33); Albumin Level 3.1 g/dL (3.5-5.2); Alkaline Phosphatase 166 U/L (35-105); Aspartate Amino Transferase 11 U/L (0-32); Blood Urea Nitrogen 9 mg/dL (6-20); Calcium 8.7 mg/dL (8.5-10.5); Carbon Dioxide 20 mmol/L (22-29); Chloride 102 mmol/L (98-107); Creatinine Clr Calc Pharmacy 151.2461; Globulin 3.4 g/dL (1.3-4.6); Glomerular Filtration Rate 102.8 mL/min (90-130); Glucose 96 mg/dL (65-115); Osmolality Calculated 275 mOsm/kg (285-295); Sodium 133 mmol/L (136-145); Total Bilirubin 0.2 mg/dL (0.15-1.2); Total Protein 6.5 g/dL (6.6-8.7)
[2022-09-09 10:37] LABS: Bilirubin Urine Neg (Negative); Blood Urine Neg (Negative); Glucose Urine UA Norm (Normal); Ketones Urine Negative (Negative); Nitrate Urine Negative (Negative); Protein Urine Neg (Negative); Specific Gravity, Urine 1.025 (1.005-1.030); Urine Appearance Hazy (CLEAR); Urine Color Dark Yellow (Yellow); pH Urine 5 (5-7)
[2022-09-09 10:38] LABS: Add Urine Microscopic? YES; Leukocyte Esterase Urine Negative (Negative); Urobilinogen Urine 1 mg/dL (Negative)
[2022-09-09 10:40] LABS: WBC Urine RARE /hpf (0-5)
[2022-09-09 10:41] LABS: Add Urine Culture? No; Bacteria Urine 2+ /hpf; Mucus Urine 1+ /hpf; Squamous Epithelial Cell Urine 15-25 /hpf (0-5); Transitional Epi Cells Urine 0-4 /hpf
--- NOTE | 2022-09-09 10:59 | PM.HP ---
Providers/Chief Complaint Admitting Physician: Jermaine Chief Complaint: tailbone pain/poss cyst History of Present Illness Sudhakar Viramontes is a 22 year old female who was in her third trimester presents with buttock pain. The patient has a history of a pilonidal cyst. The patient denies fever or chills. She has been having pain for the last 1 days. The patient been placed on clindamycin. The cyst is actually gotten worse while on clindamycin. The patient has no significant past medical history. The patient is . Is the patient's first . The patient is being followed by OB. Everything is reportedly normal with the . Review of Systems General: Reports: 10 or more systems reviewed and unremarkable except in HPI and below Medications/Allergies Home Medications Medication Instructions Recorded Confirmed Last Taken Type clindamycin HCl 300 mg capsule 300 mg PO Q8H 7 days #21 caps 09/04/22 09/09/22 09/09/22 Rx labetalol 200 mg tablet 200 mg PO BID #60 tabs 09/04/22 09/09/22 09/09/22 Rx valacyclovir 500 mg tablet 500 mg PO BID #60 tabs 09/05/22 09/09/22 09/09/22 Rx (Valtrex) Allergies Allergy/AdvReac Type Severity Reaction Status Date / Time Latex, Natural Rubber Allergy Intermediate hives Verified 09/05/22 10:11 PFSH Acute PFSH: Medical History Anxiety and depression She was diagnosed and treated with lexapro. She only used this for about 2 weeks, and stopped due to n/v. She feels managed without medication. No pertinent past medical history neghx: htn,dm,thyroid,dvt/pe PCP: None Surgical History Hx of wisdom tooth extraction (~08/2021) Family History Grandmother Breast cancer Maternal Great Grandmother-- dx age 50 Paternal Grandmother--dx age 40's Father Colon cancer dx age late 40s Hypercholesteremia Hypertension Denies family history of Ovarian cancer Diabetes Heart disease Uterine cancer Thyroid disease Stroke Vitals/I&O/Wt Last Vital Signs Temp 97.8 F 09/09/22 08:53 Pulse 86 09/09/22 08:53 BP 160/95 09/09/22 08:53 Pulse Ox 96 09/09/22 08:53 O2 Del Method 09/09/22 08:53 Weight last 48 hrs Weight 230 lb Physical Exam Narrative: General: The patient is laying on her stomach. HEENT is normocephalic atraumatic, pupils equal round reactive to light. Extraocular muscles are intact Neck: Is free range of motion and nontender. The patient's trachea is midline. The patient has no thyromegaly Lungs: Clear to auscultation and percussion Heart: Is regular rate and rhythm with a soft 2/6 systolic ejection murmur. There is no S3 or S4. The patient is somewhat tachycardic. The patient has no rubs clicks or JVD noted Abdomen: The patient's gravid. The patient does have heart tones. There is no hepatosplenomegaly. There is no tenderness. Buttocks: Patient has a pilonidal cyst with an area of induration and tenderness. There is an area of increased warmth. She also has a area on her left buttock which is also somewhat tender. This may represent another cyst. Or another abscess cavity. Extremities: There is no obvious deformities or point tenderness suggestive of fracture. The patient has trace edema in her ankles. Neurologic: The patient is awake, alert, oriented x3. The patient's Ct Coma Scale is 15. The patient moves all 4 extremities without difficulty. The patient sensations intact to light touch throughout. Data 09/09/22 09:41 09/09/22 09:41 Micro: Microbiology 09/09/22 09:41 Blood Culture - Preliminary Blood SPECIMEN COLLECTED 09/09/22 09:44 Blood Culture - Preliminary Blood SPECIMEN COLLECTED A&P Assessment and plan (1) Pilonidal abscess: We will admit the patient to the surgery service for observation. We will give the patient some Zosyn. We will schedule the patient for operative intervention. The risk and benefits of operative intervention been explained to the patient. The patient seems to understand his risk and benefits and would like to proceed. Attestations Medical Necessity Statement*: Operative intervention later on today. Coding Level of Care Code 50441 Diagnoses Pilonidal abscess L05.01
[2022-09-09] MEDS: piperacillin-tazobactam 3.375 GM in sodium chloride 0.9% (plus) 50 ML IV ×2 (11:38→18:37)
[2022-09-09] MEDS: citric acid-sodium citrate 30 mL UDC PO (12:31)
[2022-09-09] MEDS: sodium chloride 0.9% 1,000 ML 30 ML IV (12:32)
[2022-09-09] MEDS: famotidine 20 mg/2 mL INJ IVP (12:32)
[2022-09-09] MEDS: metoclopramide 5 mg/mL SDV 2 mL 10 MG IVP (12:32)
--- NOTE | 2022-09-09 12:50 | P.ANESASSM_ITS ---
Pre-Anesthetic Assessment Height/Weight: Height 1.68 m Weight 104.326 kg Temp Pulse Resp BP Pulse Ox O2 Del Method 97.8 F 73 17 151/118 97 09/09/22 08:53 09/09/22 10:57 09/09/22 10:57 09/09/22 10:57 09/09/22 10:57 09/09/22 10:57 Operation Date: 09/09/22 14:00 Proposed Procedures p Pilonidal Cystectomy(Not Applicable) - Susana Dean MD Familial anesthetic complications: none Last intake: > 8 hrs Social No alcohol and No tobacco Exam alert, oriented x 3, clear to auscultation bilaterally and regular rate & rhythm Airway Mallampati: Class I Dentition: full CV/HEM Hypertension Anesthetic Plan ASA status: 2 Anesthesia: Regional (specify below) Other: Spinal Risk of > 500 ml blood loss (7ml/kg in children): No Other Pertinent Information Discussed patient's case w/ Dr. Garrido. NST done pre-op and to be done post-op per Dr. Garrido. heart tones after placement of spinal. Will perform pre- eclalmpsia work-up prior to discharge Medications/Allergies Home Medications Medication Instructions Recorded Confirmed Last Taken Type clindamycin HCl 300 mg capsule 300 mg PO Q8H 7 days #21 caps 09/04/22 09/09/22 09/09/22 Rx labetalol 200 mg tablet 200 mg PO BID #60 tabs 09/04/22 09/09/22 09/09/22 Rx valacyclovir 500 mg tablet 500 mg PO BID #60 tabs 09/05/22 09/09/22 09/09/22 Rx (Valtrex) Allergies Allergy/AdvReac Type Severity Reaction Status Date / Time Latex, Natural Rubber Allergy Intermediate hives Verified 09/05/22 10:11 Current Medications Generic Name Dose Route Start Last Admin Trade Name Freq PRN Reason Stop Dose Admin Sodium Chloride 1,000 mls @ 30 mls/hr 09/09/22 12:30 09/09/22 12:32 Sodium Chloride 0.9% IV 09/10/22 12:29 30 mls/hr .Q24H DIEGO Administration PFSH Anesthesia Medical History Anxiety and depression She was diagnosed and treated with lexapro. She only used this for about 2 weeks, and stopped due to n/v. She feels managed without medication. No pertinent past medical history neghx: htn,dm,thyroid,dvt/pe PCP: None Surgical History Hx of wisdom tooth extraction (~08/2021) Family History Grandmother Breast cancer Maternal Great Grandmother-- dx age 50 Paternal Grandmother--dx age 40's Father Colon cancer dx age late 40s Hypercholesteremia Hypertension Denies family history of Ovarian cancer Diabetes Heart disease Uterine cancer Thyroid disease Stroke Data Anesthesia 09/09/22 09:41 09/09/22 09:41 Short CBC 09/09/22 Range/Units 09:41 WBC 13.9 H (4.0-10.0) 10^3/uL Hgb 10.8 L (11.5-15.3) g/dL Hct 32.8 L (37.0-47.0) % MCV 93.4 (81-99) fl Plt Count 270 (130-400) 10^3/cmm Neut % (Auto) 76.8 % Neut # (Auto) 10.69 H (1.8-7.7) 10^3/uL BMP 09/09/22 09:41 Sodium 133 L Potassium 4.0 Chloride 102 Carbon Dioxide 20 L BUN 9 Creatinine 0.7 Glucose 96 Calcium 8.7 Liver Function 09/09/22 Range/Units 09:41 Total Bilirubin 0.2 (0.15-1.2) mg/dL AST 11 (0-32) U/L ALT 9 (0-33) U/L Alkaline Phosphatase 166 H (35-105) U/L Albumin 3.1 L (3.5-5.2) g/dL Urine 09/09/22 Range/Units 10:10 Urine Color Dark yellow (Yellow) Urine Appearance Hazy A (CLEAR) Urine pH 5 (5-7) Ur Specific [place] 1.025 (1.005-1.030) Urine Protein Neg (Negative) Urine Glucose (UA) Norm (Normal) Urine Ketones Negative (Negative) Urine Nitrate Negative (Negative) Urine Bilirubin Neg (Negative) Ur Leukocyte Esterase Negative (Negative) Urine RBC None (0-2) /hpf Urine WBC Rare (0-5) /hpf Microbiology 09/09/22 09:41 Blood Culture - Preliminary Blood SPECIMEN COLLECTED 09/09/22 09:44 Blood Culture - Preliminary Blood SPECIMEN COLLECTED Cardiac Studies: No Data to Display
--- NOTE | 2022-09-09 13:38 | SUR.OPER ---
fht's 130's at 1335
[2022-09-09] MEDS: lidocaine-epi 1% 20 mL INJ INJECTION (13:47)
--- NOTE | 2022-09-09 14:08 | PM.OP ---
Operative Report Date of procedure: September 09, 2022 Pre-op diagnosis: Infected pilonidal cyst Post-op diagnosis: same Procedure done: Incision and drainage of infected pilonidal cyst and left buttock induration Pathology: Cultures sent Surgeon: Susana Dean Anesthesia: Nerve Block Complications: None noted Findings: Abscess drained. Cultures taken. Left buttock induration did not reveal an abscess or fluid collection. Both areas were packed open Condition: stable Disposition: PACU Brief History: This is a 22-year-old female who presents complaining of buttock pain. The patient had a pilonidal abscess drained several days ago. The patient's been on clindamycin. The patient's pilonidal area has been getting worse. She has had increased pain. The patient appears to have an infected pilonidal cyst. The risk and benefits of incision and drainage of been explained to the patient. The patient seems to understand his risk and benefits are like to proceed. Should be mentioned the patient is in her third trimester of . Procedure: Procedure in detail: Patient was brought to the operative room. The patient received spinal anesthesia. The patient was then placed in the left lateral decubitus position. The patient's pilonidal region and right buttock were prepped and draped in usual sterile fashion. Following this a timeout was performed. Patient identifiers as well as the goals procedure were discussed everyone in room agreed. I used 1% lidocaine with epinephrine in order to enhance the patient's spinal anesthesia. Approximately 8 cc were used. An incision was made over the area of induration. The Bovie cautery is used to carry this incision down into the subcutaneous tissues and the broken to a pocket of pus. This was cultured. The pus was drained with a Yonker suction. And then an elliptical incision was made around this initial incision in order to open this area up. The Bovie cautery is used for hemostasis. The wound was packed. Attention was turned to the patient's left buttock. Using a 10 cc syringe with an 18-gauge needle I probed the area which was indurated. I did not get any pus. I thought the best thing to do would be to go ahead and open this area. With skin knife made an incision over the area of induration. Carried this incision into the subcutaneous tissues. There is no abscess that I can appreciate. This left buttock incision was packed open with Kerlix. This incision was approximately 4 cm in length and extended 1 cm deep into the subcutaneous tissues. The pilonidal incision was approximately 6 cm in length 1 cm wide and 2 cm deep. This was packed with Kerlix. It was packed tightly. 4 x 4's were placed over both wounds and then an ABD pad. The patient was taken to recovery room in stable condition. It should be mentioned that this was an incisional drainage. This was drained using sterile sharp dissection using a combination of the knife and the Bovie cautery. Follow procedure spoke with the patient's boyfriend's mother and explained to her the above findings. All questions were addressed.
--- NOTE | 2022-09-09 14:32 | SUR.OPER ---
1400 fht's 150's
[2022-09-09 15:21] LABS: Uric Acid 5.9 mg/dL (2.4-5.7)
--- NOTE | 2022-09-09 15:30 | ANE.PACU2 ---
Inpatient post-anesthesia follow up: Airway intact: Yes Vital signs: Temperature 97.2 F Pulse Rate 91 Respiratory Rate 14 Blood Pressure 154/89 Pulse Oximetry 97 Oxygen Delivery Me thod Room Air Oxygen Flow Rate 6 Fraction of Inspir ed Oxygen Hydration adequate: Yes Nausea and vomiting: No Pain level: 1 Mental status: Baseline
[2022-09-09] MEDS: ondansetron 2 mg/ML SDV 2 mL 4 MG IVP (15:49)
[2022-09-09 16:22] LABS: Urine Creatinine 312 mg/dL (28-217)
[2022-09-09 16:36] LABS: UPRO/UCREAT Ratio 0.12 mg/mg CR; Urine Protein Random 38 mg/dL
[2022-09-09] MEDS: oxyCODONE 5 mg IR Tab/Cap PO (18:33)
[2022-09-09] MEDS: labetalol 200 mg Tablet PO (20:36)
[2022-09-09] MEDS: acetaminophen 325 mg Tablet 650 MG PO (21:57)
[2022-09-10 03:11] VITALS: RESP 16
[2022-09-10] MEDS: oxyCODONE 5 mg IR Tab/Cap PO ×2 (03:11→09:06)
[2022-09-10] MEDS: piperacillin-tazobactam 3.375 GM in sodium chloride 0.9% (plus) 50 ML IV (03:13)
[2022-09-10 04:41] VITALS: BP 154/89; PULSE 91; RESP 14
[2022-09-10 06:12] VITALS: TEMP 36.2
[2022-09-10] MEDS: ondansetron 2 mg/ML SDV 2 mL 4 MG IVP (06:45)
[2022-09-10] MEDS: labetalol 200 mg Tablet PO (08:58)
[2022-09-10 09:06] VITALS: RESP 17
--- NOTE | 2022-09-10 09:10 | PC.NURSE ---
Breakfast Pt. did not really want breakfast. Jello given as requested.
--- NOTE | 2022-09-10 09:54 | PM.DCS ---
Discharge Providers Date of Admission: 09/09/22 10:52 Date of Discharge: September 10, 2022 Attending Provider at Admission: Susana Dean MD Attending Provider at Discharge: Susana Dean MD Diagnoses at Discharge Discharge Diagnosis (1) Pilonidal abscess: Details from hospital stay: Infected pilonidal the patient was taken to the operating room where she underwent incision and drainage of an infected pilonidal cyst. The patient was admitted overnight. The patient did well. The patient underwent 1 dressing change. The patient is ready for discharge at this time. Status: Acute Reason for Visit Reason for Visit: Brief History: This is a 22-year-old female who presented with an infected pilonidal cyst. Hospital Course Hospital Course This underwent I and D. Was admitted for abx. Did well and is now ready for d/c Physical Exam Narrative: The patient presented with a late trimester . The patient also had an area of induration and fluctuance over her pilonidal region. She had increased warmth and tenderness in this region. Urinary Catheter Management: Delacruz Latex Free: Cath Placed During This Visit: yes, but has since been removed by the nurse Reason for Continuing Indwelling Catheter: Not indwelling catheter Urinary Catheter Date of Insertion: 09/09/22 Urinary Catheter Time of Insertion: 13:35 Date Urinary Catheter Removed: 09/09/22 Time Urinary Catheter Discontinued: 18:26 Discharge Data Studies Completed and Pending Pending at discharge Category Date Time Status Anaerobic Culture Routine Lab 09/09/22 13:50 Received Blood Culture Stat Lab 09/09/22 09:41 Results Wound Culture and Gram Stain Routine Lab 09/09/22 13:50 Results Laboratory Results WBC 13.9 10^3/uL (4.0-10.0) H 09/09/22 09:41 RBC 3.51 10^6/uL (4.1-5.3) L 09/09/22 09:41 Hgb 10.8 g/dL (11.5-15.3) L 09/09/22 09:41 Hct 32.8 % (37.0-47.0) L 09/09/22 09:41 MCV 93.4 fl (81-99) 09/09/22 09:41 MCH 30.8 pg (28.0-34.0) 09/09/22 09:41 MCHC 32.9 g/dL (30.0-36.0) 09/09/22 09:41 RDW 12.2 % (12.1-15.1) 09/09/22 09:41 Plt Count 270 10^3/cmm (130-400) 09/09/22 09:41 MPV 11.2 fL (7.4-10.4) H 09/09/22 09:41 Neut % (Auto) 76.8 % 09/09/22 09:41 Lymph % (Auto) 13.6 % 09/09/22 09:41 [place] % (Auto) 5.8 % 09/09/22 09:41 Eos % (Auto) 2.9 % 09/09/22 09:41 Baso % (Auto) 0.5 % 09/09/22 09:41 Neut # (Auto) 10.69 10^3/uL (1.8-7.7) H 09/09/22 09:41 Lymph # (Auto) 1.9 10^3/uL (0.8-4.8) 09/09/22 09:41 [place] # (Auto) 0.8 10^3/uL (0.2-0.9) 09/09/22 09:41 Eos # (Auto) 0.4 10^3/uL (0.0-0.8) 09/09/22 09:41 Baso # (Auto) 0.1 10^3/uL (0.0-0.1) 09/09/22 09:41 Nucleated RBC % (auto) 0 % 09/09/22 09:41 Nucleated RBCs # 0.0 /100WBC 09/09/22 09:41 Sodium 133 mmol/L (136-145) L 09/09/22 09:41 Potassium 4.0 mmol/L (3.5-5.1) 09/09/22 09:41 Chloride 102 mmol/L (98-107) 09/09/22 09:41 Carbon Dioxide 20 mmol/L (22-29) L 09/09/22 09:41 Anion Gap 15.0 (5-19) 09/09/22 09:41 BUN 9 mg/dL (6-20) 09/09/22 09:41 Creatinine 0.7 mg/dL (0.5-0.9) 09/09/22 09:41 GFR Calculation 102.8 mL/min (90-130) 09/09/22 09:41 Glucose 96 mg/dL (65-115) 09/09/22 09:41 Calculated Osmolality 275 mOsm/kg (285-295) L 09/09/22 09:41 Uric Acid 5.9 mg/dL (2.4-5.7) H 09/09/22 09:41 Calcium 8.7 mg/dL (8.5-10.5) 09/09/22 09:41 Total Bilirubin 0.2 mg/dL (0.15-1.2) 09/09/22 09:41 AST 11 U/L (0-32) 09/09/22 09:41 ALT 9 U/L (0-33) 09/09/22 09:41 Alkaline Phosphatase 166 U/L (35-105) H 09/09/22 09:41 Total Protein 6.5 g/dL (6.6-8.7) L 09/09/22 09:41 Albumin 3.1 g/dL (3.5-5.2) L 09/09/22 09:41 Globulin 3.4 g/dL (1.3-4.6) 09/09/22 09:41 Urine Color Dark yellow (Yellow) 09/09/22 10:10 Urine Appearance Hazy (CLEAR) A 09/09/22 10:10 Urine pH 5 (5-7) 09/09/22 10:10 Ur Specific Pierce 1.025 (1.005-1.030) 09/09/22 10:10 Urine Protein Neg (Negative) 09/09/22 10:10 Urine Glucose (UA) Norm (Normal) 09/09/22 10:10 Urine Ketones Negative (Negative) 09/09/22 10:10 Urine Blood Neg (Negative) 09/09/22 10:10 Urine Nitrate Negative (Negative) 09/09/22 10:10 Urine Bilirubin Neg (Negative) 09/09/22 10:10 Urine Urobilinogen 1 mg/dL (Negative) H 09/09/22 10:10 Ur Leukocyte Esterase Negative (Negative) 09/09/22 10:10 Urine RBC None /hpf (0-2) 09/09/22 10:10 Urine WBC Rare /hpf (0-5) 09/09/22 10:10 Ur Squamous Epith Cells 15-25 /hpf (0-5) H 09/09/22 10:10 Ur Transition Epith Cell 0-4 /hpf 09/09/22 10:10 Amorphous Sediment Not Reportable 09/09/22 10:10 Urine Bacteria 2+ /hpf (NONE) H 09/09/22 10:10 Urine Mucus 1+ /hpf 09/09/22 10:10 U Random Total Protein 38 mg/dL 09/09/22 10:10 Urine Creatinine 312 mg/dL (28-217) H 09/09/22 10:10 Protein/Creatinin Ratio 0.12 mg/mg CR 09/09/22 10:10 Vitals Last Vital Signs Temp 97.2 F L 09/10/22 06:12 Pulse 91 09/10/22 04:41 Resp 17 09/10/22 09:06 BP 154/89 09/10/22 04:41 Pulse Ox 97 09/09/22 22:46 O2 Del Method 09/10/22 04:41 O2 Flow Rate 6 09/09/22 14:08 Discharge Plan Discharge Patient Disposition: Home Condition: Stable Prescriptions: New oxycodone 5 mg Tablet 5 mg PO Q6H PRN (Reason: Moderate Pain) Qty: 10 0RF Continued valacyclovir [Valtrex] 500 mg tablet 500 mg PO BID Qty: 60 3RF labetalol 200 mg tablet 200 mg PO BID Qty: 60 2RF Discontinued clindamycin HCl 300 mg capsule 300 mg PO Q8H 7 Days Qty: 21 0RF Discharge Orders: Discharge Order (Routine); Ordered 09/10/22 Ordered By: Susana Dean Referrals: Nate Sharma DO [Physician] - (Please follow up in 3 - 5 days) Discharge Diet: Regular Discharge Activity: Resume usual activity Patient Instructions: Opioid Safety Activity Restrictions/Additional Instructions: wound care instructions: Keep the wound clean and dry. Twice a day take a warm hot soapy bath. Dry the wounds thoroughly and then place a wet-to-dry 4 x [address] wound[address] Place a dry 4 x 4 over the wound. Then place tape. clean after each BM. Thanks Discharge Attestations Time Spent in Discharge Care*: less than 30 min Quality Metrics Clinical Quality Measures [ No reported AMI, CVA or VTE this stay] Coding Level of Care Code Acute Code for Chg Fwd Diagnoses Pilonidal abscess L05.01
[2022-09-10 10:55] VITALS: BP 146/96; PULSE 69; RESP 16; TEMP 36.8
== END 2022-09-10 11:00 | disposition home or self-care (01) ==
LOC: ER 10:24 → OR 10:52 → OBGYN 15:06
PROVIDERS: Obstetrics & Gynecology; Admitting Provider Surgery Surgical Critical Care; Emergency Provider Physician Assistant; Visit Provider Surgery Surgical Critical Care
PROC: (CPT 10060; principal; 2022-09-09 13:50)
DX: L05.01 Pilonidal cyst with abscess (principal); R23.4 Changes in skin texture; I10 Essential (primary) hypertension
CPT/HCPCS: 10060; 10080; 12345; 36415; 51702; 59025; 80053; 81001; 82570; 84156; 84550; 85025; 87040; 87070; 87075; 87205; 96365; 96375; 99223; 99285; G0378; J2250; J2405; J2543; J2765; J3490; J7030

== ENCOUNTER → 2022-09-14 14:05 | Outpatient (BNVA) | payer OTHER, BC, SELFPAY | PROVIDERS: Visit Provider Obstetrics & Gynecology | DX: O09.899 Supervision of other high risk pregnancies, unspecified trimester (principal); Z3A.00 Weeks of gestation of pregnancy not specified | CPT/HCPCS: 84315; 87077; 87086; 87184 ==

== ENCOUNTER → 2022-09-19 08:02 | Outpatient (BNVA) | payer OTHER, BC, SELFPAY | PROVIDERS: Visit Provider Obstetrics & Gynecology | DX: O09.90 Supervision of high risk pregnancy, unspecified, unspecified trimester (principal); Z3A.00 Weeks of gestation of pregnancy not specified | CPT/HCPCS: 76819; 84315 ==

== ENCOUNTER 2022-09-25 14:09 | Emergency (ER) | payer OTHER, BC, SELFPAY ==
[2022-09-25 14:21] VITALS: BP 128/87; PULSE 86; RESP 14; TEMP 36.4; O2SAT 97
--- NOTE | 2022-09-25 14:51 | US_ITS ---
WS: [id number] ULTRASOUND SOFT TISSUES coccyx HISTORY: pilonidal cyst - 36 wks COMPARISON: None available. TECHNIQUE: 2-D and color Doppler imaging is submitted. There is a complex thick wall mass superficial to the coccyx in the area of clinical concern. There i s increased vascularity predominantly within the periphery. This soft tissue collection contains a tr act extending superficial. Inflammatory collection is most consistent with phlegmon/abscess developin g measuring 3.0 x 2 2.2 x 2.6 cm. In this location, pilonidal cysts are likely. US/US soft tissue/extremity 21980 IMPRESSION: Abscess/phlegmon formation corresponds to the palpable abnormality over the marisa cyx. This is most consistent with an abscess or infected pilonidal cyst.
[2022-09-25 15:19] LABS: Basophils # 0.1 10^3/uL (0.0-0.1); Basophils % 0.6 %; Eosinophils # 0.4 10^3/uL (0.0-0.8); Hematocrit 35.6 % (37.0-47.0); Hemoglobin 11.7 g/dL (11.5-15.3); Lymphocytes # 2.1 10^3/uL (0.8-4.8); Lymphocytes % 17.4 %; Mean Corpuscular HGB Conc 32.9 g/dL (30.0-36.0); Mean Corpuscular Volume 94.4 fl (81-99); Mean Platelet Volume 10.9 fL (7.4-10.4); Monocytes # 0.6 10^3/uL (0.2-0.9); Neutrophils # 8.97 10^3/uL (1.8-7.7); Neutrophils % 73.8 %; Nucleated Red Blood Cells % 0 %; Platelet Count 287 10^3/cmm (130-400); Red Blood Count 3.77 10^6/uL (4.1-5.3); Red Cell Distribution Width 13.2 % (12.1-15.1); White Blood Count 12.2 10^3/uL (4.0-10.0)
--- NOTE | 2022-09-25 15:36 | ED_ITS ---
HPI - Skin/Abscess/Foreign Bdy General: Chief complaint: Skin/Abscess/Foreign Body Stated complaint: open wound on tailbone Time Seen by Provider: 09/25/22 14:50 Source: patient Mode of arrival: ambulatory History of Present Illness: 22-year-old female presents emergency room complaining of a pilonidal cyst. She previously had one incised and drained she is still doing the packing it is healing by secondary intent. She has an adjacent's cyst that is now forming is exquisitely painful. She is 36 weeks gestation at this point. MD complaint: abscess/boil Onset (ago): day(s) Location: buttocks ([place] of gluteal cleft) Severity: similar to previous episodes Quality: sharp Pain Consistency: constant Relieving factors: none Exacerbating factors: palpation Associated symptoms: Deny arthralgias, chills, cough, fever(s), itching, myalgias, nausea, rigidity, short of breath or vomiting Review of Systems Const: Denies: fever(s) or chills ENMT: Denies: throat pain, ear or mastoid pain, nasal discharge or nasal congestion Card: Denies: chest pain, edema, dyspnea on exertion or orthopnea Resp: Denies: dyspnea, productive cough or non-productive cough GI: Denies: abdominal pain, nausea or vomiting : Denies: flank pain, difficulty voiding, dysuria, urinary frequency or urinary urgency PFS ED PFSH: Medical History Anxiety and depression She was diagnosed and treated with lexapro. She only used this for about 2 weeks, and stopped due to n/v. She feels managed without medication. No pertinent past medical history neghx: htn,dm,thyroid,dvt/pe PCP: None Surgical History Hx of wisdom tooth extraction (~08/2021) Family History Grandmother Breast cancer Maternal Great Grandmother-- dx age 50 Paternal Grandmother--dx age 40's Father Colon cancer dx age late 40s Hypercholesteremia Hypertension Denies family history of Ovarian cancer Diabetes Heart disease Uterine cancer Thyroid disease Stroke Physical Exam Const: GENERAL APPEARANCE: cooperative and comfortable ORIENTATION/CONSCIO USNESS: Yes awake, Yes oriented to person, Yes oriented to place and Yes oriented to time HENMT: COMMON NORMALS: normocephalic, atraumatic and hearing grossly normal bilaterally HEAD & SCALP: normocephalic and atraumatic Resp: COMMON NORMALS: normal respiratory effort, No retractions, No use of accessory muscles and clear to auscultation bilaterally AUSCULTATION: clear to auscultation bilaterally Cardio: COMMON NORMALS: regular rate, regular rhythm and No murmurs present (Cardio) RATE: regular rate RHYTHM: regular rhythm GI: COMMON NORMALS: Soft to palpation and No hepatosplenomegaly present AUSCULTATION: Yes normoactive bowel sounds PALPATION: Yes Soft to palpation, No Tenderness to palpation present (GI), No Guarding due to palpation present (GI) and Yes No hepatosplenomegaly present Extremity: COMMON NORMALS: normal to inspection, capillary refill normal, no clubbing, cyanosis or edema, no calf tenderness and no pedal edema Neuro: SENSORIUM/ORIENTATION: Yes oriented to person, Yes oriented to place and Yes oriented to time Skin: OTHER: Tender moderately fluctuant abscess inferior and to the right of the original in cision space did not appear to be communicating with mild pressure elicits pain but there is no sinus tracts draining into the previous incision Procedures Abscess I/D Site: other (Pilonidal cyst) Local Anesthetic: lidocaine 1% and with epi Amount of anesthesia used (mL): 5 Technique: incised with #11 blade Amount of fluid expressed (mL): 10 Irrigation: Yes Packing used?: plain Course Vital Signs: Vital signs: Vital Signs Temperature 97.6 F 09/25/22 14:21 Pulse Rate 76 09/25/22 16:48 Respiratory Rate 16 09/25/22 16:48 Blood Pressure 128/87 09/25/22 14:21 Pulse Oximetry 98 09/25/22 16:48 Oxygen Delivery Me thod 09/25/22 14:21 MDM - Skin/Abscess/Foreign Bdy Medicial Decision Making Incision and drainage of adjacent pilonidal cyst with local anesthesia. Patient tolerated remarkably well wound irrigated aggressively and mildly debrided. Packed with iodoform gauze the adjacent cyst had previously been incised and drained it is closing prematurely there is a small opening to a deeper cavity this was opened slightly with blunt dissection and then packed. Medical Records I reviewed the patient's medical records. Lab Data I reviewed the patient's lab results. 09/25/22 15:00 09/25/22 15:00 Radiology Impressions Soft Tissue Ultrasound 09/25/22 14:51 IMPRESSION: Abscess/phlegmon formation corresponds to the palpable abnormality over the coccyx. This is most consistent with an abscess or infected pilonidal cyst. Laboratory Results WBC 12.2 10^3/uL (4.0-10.0) H 09/25/22 15:00 RBC 3.77 10^6/uL (4.1-5.3) L 09/25/22 15:00 Hgb 11.7 g/dL (11.5-15.3) 09/25/22 15:00 Hct 35.6 % (37.0-47.0) L 09/25/22 15:00 MCV 94.4 fl (81-99) 09/25/22 15:00 MCH 31.0 pg (28.0-34.0) 09/25/22 15:00 MCHC 32.9 g/dL (30.0-36.0) 09/25/22 15:00 RDW 13.2 % (12.1-15.1) 09/25/22 15:00 Plt Count 287 10^3/cmm (130-400) 09/25/22 15:00 MPV 10.9 fL (7.4-10.4) H 09/25/22 15:00 Neut % (Auto) 73.8 % 09/25/22 15:00 Lymph % (Auto) 17.4 % 09/25/22 15:00 [place] % (Auto) 5.0 % 09/25/22 15:00 Eos % (Auto) 3.0 % 09/25/22 15:00 Baso % (Auto) 0.6 % 09/25/22 15:00 Neut # (Auto) 8.97 10^3/uL (1.8-7.7) H 09/25/22 15:00 Lymph # (Auto) 2.1 10^3/uL (0.8-4.8) 09/25/22 15:00 [place] # (Auto) 0.6 10^3/uL (0.2-0.9) 09/25/22 15:00 Eos # (Auto) 0.4 10^3/uL (0.0-0.8) 09/25/22 15:00 Baso # (Auto) 0.1 10^3/uL (0.0-0.1) 09/25/22 15:00 Nucleated RBC % (auto) 0 % 09/25/22 15:00 Nucleated RBCs # 0.0 /100WBC 09/25/22 15:00 Sodium 137 mmol/L (136-145) 09/25/22 15:00 Potassium 4.3 mmol/L (3.5-5.1) 09/25/22 15:00 Chloride 102 mmol/L (98-107) 09/25/22 15:00 Carbon Dioxide 22 mmol/L (22-29) 09/25/22 15:00 Anion Gap 17.3 (5-19) 09/25/22 15:00 BUN 10 mg/dL (6-20) 09/25/22 15:00 Creatinine 0.7 mg/dL (0.5-0.9) 09/25/22 15:00 GFR Calculation 102.8 mL/min (90-130) 09/25/22 15:00 Glucose 120 mg/dL (65-115) H 09/25/22 15:00 Calculated Osmolality 284 mOsm/kg (285-295) L 09/25/22 15:00 Calcium 8.6 mg/dL (8.5-10.5) 09/25/22 15:00 Total Bilirubin 0.3 mg/dL (0.15-1.2) 09/25/22 15:00 AST 22 U/L (0-32) 09/25/22 15:00 ALT 11 U/L (0-33) 09/25/22 15:00 Alkaline Phosphatase 180 U/L (35-105) H 09/25/22 15:00 Total Protein 7.3 g/dL (6.6-8.7) 09/25/22 15:00 Albumin 3.6 g/dL (3.5-5.2) 09/25/22 15:00 Globulin 3.7 g/dL (1.3-4.6) 09/25/22 15:00 Discharge Plan Discharge Patient Disposition: Home Clinical Impression: Pilonidal abscess, Condition: Stable Prescriptions: New Percocet 5-325 mg tablet 1 tab PO Q6H PRN (Reason: pain) Qty: 14 0RF No Action valacyclovir [Valtrex] 500 mg tablet 500 mg PO BID Qty: 60 3RF labetalol 200 mg tablet 200 mg PO BID Qty: 60 2RF cephalexin 500 mg capsule 500 mg PO TID Qty: 21 0RF Discharge Orders: Discharge ED (Routine); Ordered 09/25/22 Ordered By: Bacilio Soares Discharge Diet: Usual diet Discharge Activity: Increase activity as tolerated Patient Instructions: Opioid Safety, Pain Management Activity Restrictions/Additional Instructions: You are seen today for a pilonidal cyst. It was anesthetized incised and drained culture was done. Continue the antibiotics you are previously prescribed follow-up with surgery tomorrow have the packing changed. We also packed the adjacent cyst that had previously been drained. Coding Level of Care Code ED Clothes Marker for Jamila Horan
[2022-09-25 15:43] LABS: Alanine Aminotransferase 11 U/L (0-33); Albumin Level 3.6 g/dL (3.5-5.2); Alkaline Phosphatase 180 U/L (35-105); Anion Gap 17.3 (5-19); Aspartate Amino Transferase 22 U/L (0-32); Blood Urea Nitrogen 10 mg/dL (6-20); Calcium 8.6 mg/dL (8.5-10.5); Carbon Dioxide 22 mmol/L (22-29); Chloride 102 mmol/L (98-107); Creatinine Clr Calc Pharmacy 151.2461; Globulin 3.7 g/dL (1.3-4.6); Glomerular Filtration Rate 102.8 mL/min (90-130); Glucose 120 mg/dL (65-115); Osmolality Calculated 284 mOsm/kg (285-295); Potassium 4.3 mmol/L (3.5-5.1); Sodium 137 mmol/L (136-145); Total Bilirubin 0.3 mg/dL (0.15-1.2); Total Protein 7.3 g/dL (6.6-8.7)
[2022-09-25 16:24] VITALS: RESP 18
[2022-09-25] MEDS: morphine 4 mg/mL SDV 1 mL IVP (16:24)
[2022-09-25] MEDS: ondansetron 2 mg/ML SDV 2 mL 4 MG IVP (16:24)
[2022-09-25] MEDS: lidocaine-epi 1% 20 mL INJ INJECTION (16:38)
--- NOTE | 2022-09-25 16:38 | PC.NURSE ---
Lidocaine administered by physician.
[2022-09-25 16:48] VITALS: PULSE 76; RESP 16; O2SAT 98
--- NOTE | 2022-09-25 16:50 | PC.NURSE ---
Dr. Soares drained abscess. Culture collected. Amount of drainage is unknown by this nurse.
--- NOTE | 2022-09-26 16:48 | DCPLANNER ---
Addendum entered by Anne Marie Guerra 09/27/22 13:05: client integration manager called patient due to no primary care physician - no answer at this time Original Note: TCM called patient due to no primary care physician - no answer at this time.
== END 2022-09-25 16:50 | disposition home or self-care (01) ==
PROVIDERS: Emergency Provider Family Medicine
DX: O98.813 Other maternal infectious and parasitic diseases complicating pregnancy, third trimester (principal); L05.01 Pilonidal cyst with abscess; Z3A.36 36 weeks gestation of pregnancy
CPT/HCPCS: 10080; 36415; 76882; 80053; 85025; 87040; 87070; 87077; 87186; 96374; 96375; 99285; J2270; J2405

== ENCOUNTER → 2022-09-26 13:47 | Outpatient (BNVA) | payer OTHER, BC, SELFPAY | PROVIDERS: Visit Provider Nurse Practitioner Women's Health | DX: O13.3 Gestational [pregnancy-induced] hypertension without significant proteinuria, third trimester (principal); Z3A.35 35 weeks gestation of pregnancy | CPT/HCPCS: 76819 ==

== ENCOUNTER → 2022-10-03 13:28 | Outpatient (BNVA) | payer OTHER, BC, SELFPAY | PROVIDERS: Visit Provider Obstetrics & Gynecology | DX: O09.92 Supervision of high risk pregnancy, unspecified, second trimester (principal); Z3A.00 Weeks of gestation of pregnancy not specified | CPT/HCPCS: 76816; 76819; 80053; 82570; 84156; 84315; 85025; 87081 ==

== ENCOUNTER 2022-10-03 15:40 | Day surgery (SDC) | payer OTHER, BC, MEDICAID, SELFPAY ==
[2022-10-04 18:24] LABS: Uric Acid 7.3 mg/dL (2.4-5.7)
== END 2022-10-03 18:00 | disposition home or self-care (01) ==
LOC: OR 11-29 14:28
PROVIDERS: Obstetrics & Gynecology; Visit Provider Surgery
DX: O09.92 Supervision of high risk pregnancy, unspecified, second trimester (principal); Z3A.00 Weeks of gestation of pregnancy not specified
CPT/HCPCS: 84550

== ENCOUNTER 2022-10-04 18:53 | Outpatient (CLI) | payer OTHER, BC, SELFPAY ==
[2022-10-04 19:02] VITALS: BP 148/100; PULSE 76
[2022-10-04 19:19] VITALS: BP 135/84; PULSE 68
[2022-10-04 19:25] VITALS: BMI 36.6
[2022-10-04 19:34] VITALS: BP 138/82; PULSE 57
[2022-10-04 20:05] VITALS: BP 138/82; PULSE 57; RESP 18
== END 2022-10-04 20:00 | disposition home or self-care (01) ==
LOC: OPOB 18:54 → OBGYN 18:59
PROVIDERS: Visit Provider Obstetrics & Gynecology
DX: O16.9 Unspecified maternal hypertension, unspecified trimester (principal); Z3A.00 Weeks of gestation of pregnancy not specified
CPT/HCPCS: 59025; 99211

== ENCOUNTER → 2022-10-10 14:30 | Outpatient (BNVA) | payer OTHER, BC, SELFPAY | PROVIDERS: Visit Provider Obstetrics & Gynecology | DX: O13.3 Gestational [pregnancy-induced] hypertension without significant proteinuria, third trimester (principal); O09.90 Supervision of high risk pregnancy, unspecified, unspecified trimester; R82.90 Unspecified abnormal findings in urine; Z3A.00 Weeks of gestation of pregnancy not specified | CPT/HCPCS: 76819; 84315; 87077; 87086; 87184 ==

== ENCOUNTER → 2022-10-16 09:48 | Outpatient (BNVA) | payer OTHER, BC, SELFPAY | PROVIDERS: Visit Provider Obstetrics & Gynecology | DX: O09.90 Supervision of high risk pregnancy, unspecified, unspecified trimester (principal); Z3A.38 38 weeks gestation of pregnancy | CPT/HCPCS: 76819; 84315 ==

== ENCOUNTER 2022-10-19 07:58 | Inpatient (IN) | payer OTHER, BC, MEDICAID, SELFPAY ==
[2022-10-19] VITALS (100 sets, daily range): BP systolic 119–201; BP diastolic 73–134; PULSE 58–97; RESP 14–18; TEMP 35.7–36.2; O2SAT 97–100; BMI 36.6
[2022-10-19] MEDS: miSOPROStol 100 mcg tablet 25 MCG VAGINAL (08:35)
[2022-10-19 09:20] LABS: Basophils # 0.1 10^3/uL (0.0-0.1); Basophils % 0.7 %; Eosinophils # 0.4 10^3/uL (0.0-0.8); Eosinophils % 4.7 %; Hematocrit 34.3 % (37.0-47.0); Hemoglobin 11.6 g/dL (11.5-15.3); Lymphocytes # 2.1 10^3/uL (0.8-4.8); Lymphocytes % 25.1 %; Mean Corpuscular HGB Conc 33.8 g/dL (30.0-36.0); Mean Corpuscular Volume 94.8 fl (81-99); Mean Platelet Volume 11.3 fL (7.4-10.4); Monocytes # 0.6 10^3/uL (0.2-0.9); Monocytes % 6.7 %; Neutrophils % 62.4 %; Nucleated Red Blood Cells % 0 %; Platelet Count 224 10^3/cmm (130-400); Red Blood Count 3.62 10^6/uL (4.1-5.3); Red Cell Distribution Width 14.1 % (12.1-15.1); White Blood Count 8.2 10^3/uL (4.0-10.0)
[2022-10-19 09:36] LABS: Alanine Aminotransferase 12 U/L (0-33); Albumin Level 3.4 g/dL (3.5-5.2); Alkaline Phosphatase 191 U/L (35-105); Anion Gap 15.6 (5-19); Aspartate Amino Transferase 18 U/L (0-32); Blood Urea Nitrogen 11 mg/dL (6-20); Calcium 8.5 mg/dL (8.5-10.5); Carbon Dioxide 21 mmol/L (22-29); Chloride 104 mmol/L (98-107); Globulin 3.3 g/dL (1.3-4.6); Glomerular Filtration Rate 102.8 mL/min (90-130); Glucose 77 mg/dL (65-115); Osmolality Calculated 280 mOsm/kg (285-295); Potassium 4.6 mmol/L (3.5-5.1); Sodium 136 mmol/L (136-145); Total Bilirubin 0.2 mg/dL (0.15-1.2); Total Protein 6.7 g/dL (6.6-8.7); Uric Acid 7.1 mg/dL (2.4-5.7)
[2022-10-19 09:54] LABS: Glucose Urine UA Norm (Normal); Ketones Urine Negative (Negative); Protein Urine 1+ (Negative); Urine Appearance Clear (CLEAR); Urine Color Yellow (Yellow); pH Urine 6 (5-7)
[2022-10-19 09:55] LABS: Add Urine Microscopic? YES; Bilirubin Urine Neg (Negative); Blood Urine Neg (Negative); Leukocyte Esterase Urine Negative (Negative); Nitrate Urine Negative (Negative); Urobilinogen Urine Neg (Negative)
[2022-10-19 09:56] LABS: Add Urine Culture? No; Bacteria Urine TRACE /hpf; Mucus Urine 1+ /hpf; RBC Urine 0-4 /hpf (0-2); WBC Urine 0-4 /hpf (0-5)
[2022-10-19 10:07] LABS: Urine Creatinine 187 mg/dL (28-217)
[2022-10-19 10:10] LABS: UPRO/UCREAT Ratio 0.24 mg/mg CR; Urine Protein Random 44 mg/dL
[2022-10-19] MEDS: labetalol 5 mg/mL SDV 20mL 20 MG IVP (13:46)
[2022-10-19] MEDS: labetalol 5 mg/mL SDV 20mL 40 MG IVP (14:42)
[2022-10-19] MEDS: lactated ringers 1,000 ML 999 ML IV ×2 (15:26→17:52)
[2022-10-19] MEDS: labetalol 5 mg/mL SDV 20mL 80 MG IVP (17:19)
[2022-10-19] MEDS: ondansetron 2 mg/ML SDV 2 mL 4 MG IVP ×2 (17:41→21:29)
[2022-10-19] MEDS: magnesium sulfate premix 4 GM/100 ML PREMIX IV (17:45)
[2022-10-19] MEDS: magnesium sulfate premix 20 GM/500 ML BAG IV (17:45)
--- NOTE | 2022-10-19 18:34 | PC.NURSE ---
DR. LIU HERE AT 1540 AND SEVERAL ATTEMPTS THIS SAMPLE PATTERNMAKER CALLED AUDREY EDWARDS AT 1556 TO SEE IF HE COULD COME AND HELP HER THEN PRITI CARNEY AND NIKITA BABIN CAME IN AND BOTH OF THEM ATTEMPTED WELL PRITI GOT 1ST EPIDRUAL AND 1ST TEST DOSE AT 1628 AND THEN PATIENT WAS LAID BACK AND WE WAITED THRU SEVERAL CONTRACTIONS AND PATIENT WAS STILL HURTING SO PATIENT AGREED TO LET JOVI MAGDALENO TRY, SO PATIENT SAT UP AND THIS TIME EPIDURAL WAS PLACED AND THEN PATIENT WAS LAID BACK AND GOT GREAT RELIEF EVEN AFTER JUST 1-2 CONTRACTIONS.
--- NOTE | 2022-10-19 19:39 | P.ANESASSM_ITS ---
Pre-Anesthetic Assessment Height/Weight: Height 1.68 m Weight 102.965 kg Temp Pulse Resp BP Pulse Ox O2 Del Method 96.3 F L 64 16 138/86 99 10/19/22 19:32 10/19/22 19:31 10/19/22 12:32 10/19/22 19:31 10/19/22 17:41 10/19/22 08:30 epidural Familial anesthetic complications: None Social No alcohol and No tobacco Exam alert, oriented x 3, clear to auscultation bilaterally and regular rate & rhythm Airway Mallampati: Class III Dentition: full CV/HEM gestational HTN Metabolic Morbid Obesity Anesthetic Plan ASA status: 2 Anesthesia: Regional (specify below) Risk of > 500 ml blood loss (7ml/kg in children): No Medications/Allergies Home Medications Medication Instructions Recorded Confirmed Last Taken Type labetalol 200 mg tablet 200 mg PO BID #60 tabs 09/04/22 10/17/22 10/19/22 07:45 Rx valacyclovir 500 mg tablet 500 mg PO BID #60 tabs 09/05/22 10/17/22 10/19/22 07:45 Rx (Valtrex) nitrofurantoin 100 mg PO BID UTI #14 caps 10/13/22 10/17/22 10/19/22 07:45 Rx monohydrate/macrocrystals 100 mg capsule (Macrobid) Allergies Allergy/AdvReac Type Severity Reaction Status Date / Time Latex, Natural Rubber Allergy Intermediate hives Verified 10/17/22 11:53 Current Medications Generic Name Dose Route Start Last Admin Trade Name Freq PRN Reason Stop Dose Admin Lactated Ringer's 1,000 mls @ 999 mls/hr 10/19/22 08:26 10/19/22 17:52 Lactated Ringers IV 999 mls/hr .Q1H1M PRN Administration Per L&D Rescitation Protocol Ropivacaine 200 mg in 100 mls @ 13 mls/hr 10/19/22 15:15 10/19/22 15:26 Naropin Premix EPIDURAL 13 mls/hr .Q7H42M DIEGO Administration Lactated Ringer's 1,000 mls @ 999 mls/hr 10/19/22 15:09 10/19/22 15:26 Lactated Ringers IV 999 mls/hr .Q1H1M PRN Administration See label comments Magnesium Sulfate 20 gm in 500 mls @ 50 mls/hr 10/19/22 17:30 10/19/22 17:45 Magnesium Sulfate Premix IV 50 mls/hr .Q10H DIEGO Administration Labetalol HCl 20 mg 10/19/22 10:19 10/19/22 13:46 Labetalol 5 Mg/Ml Sdv 20ml IVP 20 mg PRN PRN Administration HYPERTENSION Protocol Labetalol HCl 40 mg 10/19/22 10:19 10/19/22 14:42 Labetalol 5 Mg/Ml Sdv 20ml IVP 40 mg PRN PRN Administration HYPERTENSION Protocol Labetalol HCl 80 mg 10/19/22 10:19 10/19/22 17:19 Labetalol 5 Mg/Ml Sdv 20ml IVP 80 mg PRN PRN Administration HYPERTENSION Protocol Ondansetron HCl 4 mg 10/19/22 08:26 10/19/22 17:41 Ondansetron 2 Mg/Ml Sdv 2 Ml IVP 4 mg Q4H PRN Administration NAUSEA AND VOMITING PFSH Anesthesia Medical History Anxiety and depression She was diagnosed and treated with lexapro. She only used this for about 2 weeks, and stopped due to n/v. She feels managed without medication. No pertinent past medical history neghx: htn,dm,thyroid,dvt/pe PCP: None Pilonidal cyst Surgical History Hx of wisdom tooth extraction (~08/2021) Family History Grandmother Breast cancer Maternal Great Grandmother-- dx age 50 Paternal Grandmother--dx age 40's Father Colon cancer dx age late 40s Hypercholesteremia Hypertension Denies family history of Ovarian cancer Diabetes Heart disease Uterine cancer Thyroid disease Stroke Female Reproductive History : 2 Data Anesthesia 10/19/22 08:45 10/19/22 08:45 Short CBC 10/19/22 Range/Units 08:45 WBC 8.2 (4.0-10.0) 10^3/uL Hgb 11.6 (11.5-15.3) g/dL Hct 34.3 L (37.0-47.0) % MCV 94.8 (81-99) fl Plt Count 224 (130-400) 10^3/cmm Neut % (Auto) 62.4 % Neut # (Auto) 5.10 (1.8-7.7) 10^3/uL BMP 10/19/22 08:45 Sodium 136 Potassium 4.6 Chloride 104 Carbon Dioxide 21 L BUN 11 Creatinine 0.7 Glucose 77 Calcium 8.5 Liver Function 10/19/22 Range/Units 08:45 Total Bilirubin 0.2 (0.15-1.2) mg/dL AST 18 (0-32) U/L ALT 12 (0-33) U/L Alkaline Phosphatase 191 H (35-105) U/L Albumin 3.4 L (3.5-5.2) g/dL Urine 10/19/22 Range/Units 08:50 Urine Color Yellow (Yellow) Urine Appearance Clear (CLEAR) Urine pH 6 (5-7) Ur Specific [place] 1.020 (1.005-1.030) Urine Protein 1+ H (Negative) Urine Glucose (UA) Norm (Normal) Urine Ketones Negative (Negative) Urine Nitrate Negative (Negative) Urine Bilirubin Neg (Negative) Ur Leukocyte Esterase Negative (Negative) Urine RBC 0-4 H (0-2) /hpf Urine WBC 0-4 H (0-5) /hpf Cardiac Studies: No Data to Display Anesthesia Procedures Epidural Time Out Performed: Yes Consents Signed: Procedure Consent Consent: requested by attending/covering physician, from patient, patient agrees to proceed and emergency procedure Lumbar Level: L2-L3 Epidural position: sitting Epidural procedure: sterile prep of area, 1% lidocaine to numb the area, 18 g needle, negative for paresthesia passed, neg for paresthesia, test dose given, 1.5% xylocaine 1:200k epi, 0.2% Ropivacaine bolus ml, placed PCEA, no systemic response, sterile dressing applied, L.U.D. no apparent complications and 0.2% Ropiavacaine @ mls/hr (13) Additional Comments: Kimberly Lazar D.O. attempted epidural at two different locations, hitting OS. Called for additional provider to attempt. Adela Vargas MECHANICAL EQUIPMENT TEST ENGINEER and Marino Umana MECHANICAL EQUIPMENT TEST ENGINEER arrived. Adela Vargas used US probe to ines anatomic locations. Her attempts also resulted in hitting OS. Marino Umana attempted, also hitting os, but ultimately received apparent CASANDRA. Catheter was threaded with minimal difficulty. However, Patient did not receive any relief from several boluses immediately thereafter. Silvia Moon CRNA attempted, also hitting OS, but then achieved succesful loss of resistance and successful epidural blockade. Patient stated significant improvement in pain profile.
[2022-10-19] MEDS: metoclopramide 5 mg/mL SDV 2 mL 10 MG IV (21:51)
[2022-10-19] MEDS: oxytocin 30 UNIT/500 ML BAG IV (23:09)
[2022-10-19] MEDS: dextrose 5%-lactated ringers 1,000 ML 73 ML IV (23:30)
--- NOTE | 2022-10-19 23:30 | P.PN_ITS ---
CANCER PROGRAM DIRECTOR Subjective Subjective: Interval history: patient at term, admitted for IOL due to hypertension, preeclampsia presently on MgSO4 comfortable with epidural Labor: Station: -1 Amniotic Membrane Status: Intact Monitor Mode: Internal (IUPC) Contraction Pattern: Irregular Status: Category I Vitals/I&O/Wt Last Vital Signs Temp 96.3 F L 10/19/22 19:32 Pulse 81 10/19/22 23:16 Resp 16 10/19/22 22:38 BP 135/76 10/19/22 23:16 Pulse Ox 99 10/19/22 17:41 O2 Del Method 10/19/22 22:38 10/19/22 10/19/22 10/20/22 14:59 22:59 06:59 Intake Total 100 / 100 Output Total 910 / 910 Balance -810 / -810 Weight last 48 hrs Weight 227 lb Weight 227 lb Physical Exam Narrative: patient awake, alert BPs better, 128 / 72 heart tracing (FSE) - good variability, + accelerations Cervix: 3 cm / 100 / -[address] IUPC placed Urinary Catheter Management: Latex Free: Cath Placed During This Visit: yes Urinary Catheter Date of Insertion: 10/19/22 Urinary Catheter Time of Insertion: 17:45 Data 10/19/22 08:45 10/19/22 08:45 A&P Assessment and plan (1) Term : plan start pitocin augmentation if UCs inadequate. (2) Encounter for induction of labor: (3) Pre-eclampsia added to pre-existing hypertension: Attestations Medical Necessity Statement*: patient at term undergoing labor induction due to preeclampsia Coding Level of Care Code Acute Code for Chg Fwd Diagnoses Term Z34.90 Encounter for induction of labor Z34.90 Pre-eclampsia added to pre-existing hypertension O11.9
[2022-10-20] VITALS (130 sets, daily range): BP systolic 101–184; BP diastolic 56–126; PULSE 59–107; RESP 16–18; TEMP 36.2–36.9; O2SAT 92–100
[2022-10-20 00:12] LABS: Magnesium Level (OB Only) 5.5 mg/dL (5.0-7.5)
[2022-10-20] MEDS: magnesium sulfate premix 20 GM/500 ML BAG IV ×2 (04:07→15:58)
--- NOTE | 2022-10-20 06:13 | PM.DELIVERY ---
Delivery Note: Date of delivery: October 20, 2022 Pre-delivery diagnoses: 39 weeks preeclampsia labor induction Post-delivery diagnoses: same, delivered Procedure: labor induction vaginal delivery Delivering Physician: Solitario Walden MD Estimated blood loss (mL): 500 Findings: vigorous male infant normal placenta and cord cord gases and blood obtained second-degree perineal laceration Delivery: vaginal delivery Post-Delivery Status: stable History History History 2 Term 0 0 Miscarriages/Ectopic 1 Living Children 0 A&P Assessment and plan (1) Pre-eclampsia added to pre-existing hypertension: (2) Encounter for induction of labor: (3) Term : (4) Normal vaginal delivery: Coding Level of Care Code Acute Code for Chg Fwd Diagnoses Pre-eclampsia added to pre-existing hypertension O11.9 Encounter for induction of labor Z34.90 Term Z34.90 Normal vaginal delivery O80 Time Spent (min) 60
[2022-10-20] MEDS: HYDROcodone-acetaminophen 5-325 mg Tablet PO ×2 (06:55→22:38)
[2022-10-20] MEDS: labetalol 5 mg/mL SDV 20mL 20 MG IVP ×2 (07:40→19:07)
[2022-10-20] MEDS: prenatal vitamin Capsule 1 CAP PO (08:08)
[2022-10-20] MEDS: ibuprofen 800 mg tablet PO ×2 (08:08→15:50)
[2022-10-20] MEDS: NIFEdipine ER (24 hr) 30 mg Tablet PO (08:08)
[2022-10-20] MEDS: ferrous sulfate EC 325 mg Tablet PO (08:09)
[2022-10-20] MEDS: docusate sodium 100 mg Capsule PO ×2 (08:09→18:29)
[2022-10-20] MEDS: ondansetron 2 mg/ML SDV 2 mL 4 MG IVP (09:54)
[2022-10-20] MEDS: dextrose 5%-lactated ringers 1,000 ML 75 ML IV (13:48)
[2022-10-20 18:11] LABS: Hematocrit 30.7 % (37.0-47.0); Hemoglobin 10.3 g/dL (11.5-15.3); Mean Corpuscular HGB Conc 33.6 g/dL (30.0-36.0); Mean Corpuscular Hemoglobin 31.5 pg (28.0-34.0); Mean Corpuscular Volume 93.9 fl (81-99); Platelet Count 248 10^3/cmm (130-400); Red Blood Count 3.27 10^6/uL (4.1-5.3); Red Cell Distribution Width 14.5 % (12.1-15.1); White Blood Count 20.7 10^3/uL (4.0-10.0)
--- NOTE | 2022-10-20 19:10 | XRR_ITS ---
PROCEDURE INFORMATION: Exam: XR Chest Exam date and time: 10/20/2022 7:00 PM Age: 22 years old Clinical indication: Other: Rapid response TECHNIQUE: Imaging protocol: Radiologic exam of the chest. Views: 1 view. COMPARISON: No relevant prior studies available. FINDINGS: Lungs: Unremarkable. No consolidation. Pleural spaces: Unremarkable. No pleural effusion. No pneumothorax. Heart/Mediastinum: Unremarkable. No cardiomegaly. Bones/joints: Unremarkable. XR/XR chest 1V portable [id number] IMPRESSION: No acute findings.
[2022-10-20 19:39] LABS: Magnesium Level (OB Only) 6.2 mg/dL (5.0-7.5)
--- NOTE | 2022-10-20 20:23 | PC.NURSE ---
Slade Avina and Nika Bertrand went in pt room at 1845 for hourly routine mag check. Pt was alert & oriented. Reflexes were normal 2+, breath sounds were mostly clear, slightly coarse on right lower side. Urine appeared to be clear and pt was diuresing appropriately. Pt at this time, sat up in bed and began to cough, then gag. Pt was handed a basin. Pt stated something's not right, something's wrong. Pt stated she felt hot, nauseated, and couldn't breathe and that something was wrong. Pt began to hyperventilate and collapse into the bed. Nika Bertrand went to get the charge nurse, Saw Joyce. Saw Joyce called rapid response and delegated someone to contact Dr Hightower. Slade Avina set v/s to take [id number]. As the rapid response team arrived, a brief history was explained. Pulse ox was placed, EKG was taken, Labs drawn, chest xray taken, additional iv placed, O2 placed on at 15L via non-rebreather, then switched to nasal cannula at 5L. During this time, patient lost consciousness for a moment, and wasn't breathing. Sternal rub used to stimulate pt and she quickly regained consciousness. Blood pressures elevated in severe range during this event, Orders received from Campbell via telephone to administer 20mg labetolol IV. Campbell came in to assess patient and care was turned over to her from the rapid response team. Patient's BP stabilized in elevated range, no longer severe. Pt described feeling better but weak . Pt's significant other remained in room throughout event, Pt's family members waited in hallway until Dr Hightower okayed them to come in.
--- NOTE | 2022-10-20 21:38 | PM.PN ---
Subjective Subjective: called by nurses to come immediately to the hospital. The patient had an episode . She stated that she didn't feel well. she vomited and lost consciousness. Sternal rub brought her around. Her blood pressure then shot up to 180/120. Rapid response was called and by the time I arrived, 10 minutes later, testing had been performed and labs were pending. She was feeling better. A 20 mg dose of IV labetolol was given and her blood pressure returned back to the normal range. Vitals/I&O/Wt Last Vital Signs Temp 97.2 F L 10/20/22 10:55 Pulse 66 10/21/22 07:09 Resp 18 10/20/22 06:06 BP 144/98 10/21/22 07:09 Pulse Ox 92 10/20/22 21:18 O2 Del Method 10/20/22 05:00 10/20/22 10/21/22 10/21/22 22:59 06:59 14:59 Intake Total 68.584 / 736.889 7520.75 / 2822.234 Output Total 1868 / 3043 1955 / 4998 Balance -1799.416 / -2044.516 -131.25 / -2175.766 Weight last 48 hrs Weight 227 lb Physical Exam Urinary Catheter Management: Latex Free: Cath Placed During This Visit: yes, but has since been removed by the nurse Reason for Continuing Indwelling Catheter: Decision to DC Catheter Urinary Catheter Date of Insertion: 10/20/22 Urinary Catheter Time of Insertion: 06:20 Date Urinary Catheter Removed: 10/20/22 Time Urinary Catheter Discontinued: 05:00 Data 10/20/22 18:00 10/19/22 08:45 Attestations Medical Necessity Statement*: The patient is on mag sulfate. She has already been her 2 midnights Coding Level of Care Code Acute Code for Chg Fwd
[2022-10-21] VITALS (24 sets, daily range): BP systolic 119–147; BP diastolic 69–98; PULSE 60–95; RESP 17; TEMP 36.1–36.2
[2022-10-21] MEDS: magnesium sulfate premix 20 GM/500 ML BAG IV (03:09)
[2022-10-21] MEDS: dextrose 5%-lactated ringers 1,000 ML 75 ML IV (03:10)
[2022-10-21] MEDS: ondansetron 2 mg/ML SDV 2 mL 4 MG IVP (07:36)
[2022-10-21] MEDS: HYDROcodone-acetaminophen 5-325 mg Tablet PO ×3 (07:52→20:34)
--- NOTE | 2022-10-21 08:52 | PM.PN ---
Subjective Subjective: The patient has had no further episodes overnight Vitals/I&O/Wt Last Vital Signs Temp 97.2 F L 10/20/22 10:55 Pulse 66 10/21/22 07:09 Resp 18 10/20/22 06:06 BP 144/98 10/21/22 07:09 Pulse Ox 92 10/20/22 21:18 O2 Del Method 10/20/22 05:00 10/20/22 10/21/22 10/21/22 22:59 06:59 14:59 Intake Total 68.584 / 692.769 6032.75 / 2822.234 Output Total 1868 / 3043 1955 / 4998 Balance -1799.416 / -2044.516 -131.25 / -2175.766 Weight last 48 hrs Weight 227 lb Physical Exam Narrative: The mag sulfate was discontinued at 5:30 am and the mariee catheter removed. the patient continues to have good diuresis and regular blood pressures. She is feeling well, ambulating and tolerating a regular diet. Const: COMMON NORMALS: no acute distress, patient oriented x3, no limitations, healthy appearing, alert and well nourished GENERAL APPEARANCE: cooperative, comfortable, well kempt and well developed ORIENTATION/CONSCIOUSNESS: Yes awake, Yes oriented to person, Yes oriented to place and Yes oriented to time Resp: COMMON NORMALS: normal respiratory effort EFFORT & INSPECTION: Yes able to speak in complete sentences GI: COMMON NORMALS: Soft to palpation and non-tender PALPATION: Yes Soft to palpation Extremity: COMMON NORMALS: no calf tenderness Neuro: COMMON NORMALS: patient oriented x3 SENSORIUM/ORIENTATION: Yes alert, Yes oriented to person, Yes oriented to place and Yes oriented to time Psych: APPEARANCE: Yes well kempt Urinary Catheter Management: Latex Free: Cath Placed During This Visit: yes, but has since been removed by the nurse Reason for Continuing Indwelling Catheter: Decision to DC Catheter Urinary Catheter Date of Insertion: 10/20/22 Urinary Catheter Time of Insertion: 06:20 Date Urinary Catheter Removed: 10/20/22 Time Urinary Catheter Discontinued: 05:00 Data 10/20/22 18:00 10/19/22 08:45 Attestations Medical Necessity Statement*: After the episode last night, she will be observed for another 24 hours and blood pressures monitored. She will be discharged in the morning. Coding Level of Care Code Acute Code for g Virgin[place]
[2022-10-21] MEDS: docusate sodium 100 mg Capsule PO (09:32)
[2022-10-21] MEDS: prenatal vitamin Capsule 1 CAP PO (09:32)
[2022-10-21] MEDS: NIFEdipine ER (24 hr) 30 mg Tablet PO (09:32)
[2022-10-21] MEDS: simethicone 80 mg Chew PO (11:26)
[2022-10-22] VITALS (44 sets, daily range): BP systolic 129–179; BP diastolic 66–118; PULSE 67–106; RESP 16; TEMP 36.4–36.7
--- NOTE | 2022-10-22 | PC.NURSE ---
this nurse was called into patient's room. patient stated she had passed a plum sized clot but had flushed it before calling nursing staff. fundal rub performed and no other clots were expelled. patient educated about clots and to notify nursing staff if she passed another.
[2022-10-22] MEDS: ondansetron 2 mg/ML SDV 2 mL 4 MG IVP (02:14)
[2022-10-22] MEDS: HYDROcodone-acetaminophen 5-325 mg Tablet PO ×2 (04:08→16:24)
[2022-10-22] MEDS: NIFEdipine ER (24 hr) 30 mg Tablet 60 MG PO (05:08)
[2022-10-22] MEDS: labetalol 5 mg/mL SDV 20mL 20 MG IVP (06:57)
[2022-10-22] MEDS: docusate sodium 100 mg Capsule PO ×2 (09:27→17:23)
[2022-10-22] MEDS: prenatal vitamin Capsule 1 CAP PO (09:28)
[2022-10-22] MEDS: ferrous sulfate EC 325 mg Tablet PO (09:28)
[2022-10-22] MEDS: hydroCHLOROthiazide 25 mg Tablet PO (14:45)
[2022-10-22] MEDS: labetalol 200 mg Tablet 100 MG PO ×2 (14:45→21:16)
--- NOTE | 2022-10-22 14:54 | P.PN_ITS ---
Subjective Subjective: The patient was doing well. She had some very high blood pressures overnight, in the severe range and then a few today. Procardia was increased to 60 mg daily. One dose of 20 mg labetolol given IV overnight. Vitals/I&O/Wt Last Vital Signs Temp 97.5 F L 10/22/22 04:03 Pulse 94 10/22/22 14:30 Resp 16 10/22/22 11:00 BP 156/114 10/22/22 14:30 Pulse Ox 92 10/20/22 21:18 O2 Del Method 10/20/22 05:00 Physical Exam Narrative: The patient reports that she feels well. She denies any anxiety. She is only having pain in her previous pilonidal cyst suture line. Const: COMMON NORMALS: no acute distress, patient oriented x3, no limitations, healthy appearing, alert and well nourished GENERAL APPEARANCE: cooperative, comfortable, well kempt and well developed ORIENTATION/CONSCIOUSNESS: Yes awake, Yes oriented to person, Yes oriented to place and Yes oriented to time Resp: COMMON NORMALS: normal respiratory effort EFFORT & INSPECTION: Yes able to speak in complete sentences GI: COMMON NORMALS: Soft to palpation and non-tender PALPATION: Yes Soft to palpation Extremity: COMMON NORMALS: no calf tenderness Neuro: COMMON NORMALS: patient oriented x3 SENSORIUM/ORIENTATION: Yes alert, Yes oriented to person, Yes oriented to place and Yes oriented to time Psych: COMMON NORMALS: mental status grossly normal, Normal thought process present, cooperative, normal affect and speech normal APPEARANCE: Yes well ke mpt SPEECH: Yes normal speech THOUGHT PROCESS: Normal thought process present Urinary Catheter Management: Latex Free: Cath Placed During This Visit: yes, but has since been removed by the nurse Reason for Continuing Indwelling Catheter: Decision to DC Catheter Urinary Catheter Date of Insertion: 10/20/22 Urinary Catheter Time of Insertion: 06:20 Date Urinary Catheter Removed: 10/20/22 Time Urinary Catheter Discontinued: 05:00 Data 10/20/22 18:00 10/19/22 08:45 A&P Assessment and plan (1) Pre-eclampsia added to pre-existing hypertension: The patient will need to stay to get her blood pressures under control. She had some 170-180/110's I have increased her procardia to 60 mg daily in AM. 25 mg HCTZ daily in AM and 100 mg labetolol BID, at lunch and dinner. We will evaluate her blood pressures and if they remain normal, she should be discharged in the morning. Otherwise, The patient is doing well. Attestations Medical Necessity Statement*: She continues to have elevated blood pressures in the severe range. She will be staying until under control Coding Level of Care Code Acute Code for Chg Fwd Diagnoses Pre-eclampsia added to pre-existing hypertension O11.9
--- NOTE | 2022-10-23 02:18 | PC.NURSE ---
Mother asleep in bed with baby . RN placed baby in open crib beside mother's bed and educated on importance of safe sleep.
[2022-10-23 04:00] VITALS: BP 135/87; PULSE 82
--- NOTE | 2022-10-23 08:41 | P.DS_ITS ---
Discharge Providers Date of Admission: 10/19/22 07:58 Date of Discharge: October 23, 2022 Attending Provider at Admission: Pito Garrido MD Attending Provider at Discharge: Pito Garrido MD Diagnoses at Discharge Discharge Diagnosis (1) Pre-eclampsia added to pre-existing hypertension: Status: Acute Reason for Visit Reason for Visit: induction Hospital Course Hospital Course The patient was admitted for induction at term for preeclampsia superimposed on chronic hypertension. She received magnesium sulfate for seizure prophylaxis. She had spontaneous delivery of a term . She received mag sulfate for 24 hours . She had an episode at about 12 hours . She started hyperventilating and passed out. Her blood pressure shot up into the severe range. She was given IV labetolol and her blood pressure resolved. She did well until the next evening, when, her blood pressure suddenly shot up into the severe range again. She received a dose of labetolol and again, her htn resolved. The next day, it happened again. There is no trigger, no panic attack, it just happens. This time, she was placed on HCTZ, her procardia was increased to 60 mg and bid oral labetolol was started. On day of discharge, her blood pressures remained in the acceptable range. She was ready for discharge. Physical Exam Narrative: The patient feels well. She has no concerns today. She is requesting discharge. Const: COMMON NORMALS: no acute distress, patient oriented x3, no limitations, healthy appearing, alert and well nourished GENERAL APPEARANCE: cooperative, comfortable, well kempt and well developed ORIENTATION/CONSCIOUSNESS: Yes awake, Yes oriented to person, Yes oriented to place and Yes oriented to time Resp: COMMON NORMALS: normal respiratory effort EFFORT & INSPECTION: Yes able to speak in complete sentences GI: COMMON NORMALS: Soft to palpation and non-tender PALPATION: Yes Soft to palpation Extremity: COMMON NORMALS: no calf tenderness Neuro: COMMON NORMALS: patient oriented x3 SENSORIUM/ORIENTATION: Yes alert, Yes oriented to person, Yes oriented to place and Yes oriented to time Psych: COMMON NORMALS: mental status grossly normal, Normal thought process present, cooperative, normal affect and speech normal APPEARANCE: Yes well kempt SPEECH: Yes normal speech THOUGHT PROCESS: Normal thought process present Urinary Catheter Management: Latex Free: Cath Placed During This Visit: yes, but has since been removed by the nurse Reason for Continuing Indwelling Catheter: Decision to DC Catheter Urinary Catheter Date of Insertion: 10/20/22 Urinary Catheter Time of Insertion: 06:20 Date Urinary Catheter Removed: 10/20/22 Time Urinary Catheter Discontinued: 05:00 Discharge Data Studies Completed and Pending Completed Studies During Hospitalization Category Date Time Status CXRP [XR chest 1V portable [id number]] Stat Exams 10/20/22 19:10 Completed Radiology Impressions Chest X-Ray 10/20/22 19:10 IMPRESSION: No acute findings. Laboratory Results WBC 20.7 10^3/uL (4.0-10.0) H 10/20/22 18:00 RBC 3.27 10^6/uL (4.1-5.3) L 10/20/22 18:00 Hgb 10.3 g/dL (11.5-15.3) L 10/20/22 18:00 Hct 30.7 % (37.0-47.0) L 10/20/22 18:00 MCV 93.9 fl (81-99) 10/20/22 18:00 MCH 31.5 pg (28.0-34.0) 10/20/22 18:00 MCHC 33.6 g/dL (30.0-36.0) 10/20/22 18:00 RDW 14.5 % (12.1-15.1) 10/20/22 18:00 Plt Count 248 10^3/cmm (130-400) 10/20/22 18:00 MPV 11.0 fL (7.4-10.4) H 10/20/22 18:00 Neut % (Auto) 62.4 % 10/19/22 08:45 Lymph % (Auto) 25.1 % 10/19/22 08:45 Collier % (Auto) 6.7 % 10/19/22 08:45 Eos % (Auto) 4.7 % 10/19/22 08:45 Baso % (Auto) 0.7 % 10/19/22 08:45 Neut # (Auto) 5.10 10^3/uL (1.8-7.7) 10/19/22 08:45 Lymph # (Auto) 2.1 10^3/uL (0.8-4.8) 10/19/22 08:45 Collier # (Auto) 0.6 10^3/uL (0.2-0.9) 10/19/22 08:45 Eos # (Auto) 0.4 10^3/uL (0.0-0.8) 10/19/22 08:45 Baso # (Auto) 0.1 10^3/uL (0.0-0.1) 10/19/22 08:45 Nucleated RBC % (auto) 0 % 10/19/22 08:45 Nucleated RBCs # 0.0 /100WBC 10/19/22 08:45 Sodium 136 mmol/L (136-145) 10/19/22 08:45 Potassium 4.6 mmol/L (3.5-5.1) 10/19/22 08:45 Chloride 104 mmol/L (98-107) 10/19/22 08:45 Carbon Dioxide 21 mmol/L (22-29) L 10/19/22 08:45 Anion Gap 15.6 (5-19) 10/19/22 08:45 BUN 11 mg/dL (6-20) 10/19/22 08:45 Creatinine 0.7 mg/dL (0.5-0.9) 10/19/22 08:45 GFR Calculation 102.8 mL/min (90-130) 10/19/22 08:45 Glucose 77 mg/dL (65-115) 10/19/22 08:45 Calculated Osmolality 280 mOsm/kg (285-295) L 10/19/22 08:45 Uric Acid 7.1 mg/dL (2.4-5.7) H 10/19/22 08:45 Calcium 8.5 mg/dL (8.5-10.5) 10/19/22 08:45 Magnesium 6.2 mg/dL (5.0-7.5) 10/20/22 19:13 Total Bilirubin 0.2 mg/dL (0.15-1.2) 10/19/22 08:45 AST 18 U/L (0-32) 10/19/22 08:45 ALT 12 U/L (0-33) 10/19/22 08:45 Alkaline Phosphatase 191 U/L (35-105) H 10/19/22 08:45 Total Protein 6.7 g/dL (6.6-8.7) 10/19/22 08:45 Albumin 3.4 g/dL (3.5-5.2) L 10/19/22 08:45 Globulin 3.3 g/dL (1.3-4.6) 10/19/22 08:45 Urine Color Yellow (Yellow) 10/19/22 08:50 Urine Appearance Clear (CLEAR) 10/19/22 08:50 Urine pH 6 (5-7) 10/19/22 08:50 Ur Specific Yarnell 1.020 (1.005-1.030) 10/19/22 08:50 Urine Protein 1+ (Negative) H 10/19/22 08:50 Urine Glucose (UA) Norm (Normal) 10/19/22 08:50 Urine Ketones Negative (Negative) 10/19/22 08:50 Urine Blood Neg (Negative) 10/19/22 08:50 Urine Nitrate Negative (Negative) 10/19/22 08:50 Urine Bilirubin Neg (Negative) 10/19/22 08:50 Urine Urobilinogen Neg mg/dL (Negative) 10/19/22 08:50 Ur Leukocyte Esterase Negative (Negative) 10/19/22 08:50 Urine RBC 0-4 /hpf (0-2) H 10/19/22 08:50 Urine WBC 0-4 /hpf (0-5) H 10/19/22 08:50 Ur Squamous Epith Cells 5-10 /hpf (0-5) H 10/19/22 08:50 Amorphous Sediment Not Reportable 10/19/22 08:50 Urine Bacteria Trace /hpf (NONE) 10/19/22 08:50 Urine Mucus 1+ /hpf 10/19/22 08:50 U Random Total Protein 44 mg/dL 10/19/22 08:50 Urine Creatinine 187 mg/dL (28-217) 10/19/22 08:50 Protein/Creatinin Ratio 0.24 mg/mg CR 10/19/22 08:50 Vitals Last Vital Signs Temp 98.0 F 10/22/22 21:58 Pulse 82 10/23/22 04:00 Resp 16 10/22/22 11:00 BP 135/87 10/23/22 04:00 Pulse Ox 92 10/20/22 21:18 O2 Del Method 10/20/22 05:00 Discharge Plan Discharge Patient Disposition: Home Condition: Stable Prescriptions: New docusate sodium 100 mg Capsule 100 mg PO BID Qty: 60 0RF nifedipine 30 mg Tablet Extended Release 24hr 60 mg PO DAILY Qty: 60 3RF labetalol 200 mg Tablet 100 mg PO BID Qty: 30 3RF Rx Instructions: Take with lunch and dinner ibuprofen 800 mg Tablet 800 mg PO TID Qty: 30 0RF hydrochlorothiazide 25 mg Tablet 25 mg PO DAILY Qty: 30 6RF Continued valacyclovir [Valtrex] 500 mg tablet 500 mg PO BID Qty: 60 3RF nitrofurantoin monohyd/m-cryst [Macrobid] 100 mg capsule 100 mg PO BID Qty: 14 0RF Rx Instructions: Take 1 saadia po twice daily for 7 days. must administer with a meal/food Discontinued labetalol 200 mg tablet 200 mg PO BID Qty: 60 2RF Discharge Orders: Discharge Order (Routine); Ordered 10/23/22 Ordered By: Arianna Hgihtower Referrals: Arianna Hightower MD [Physician] - 10/27/22 1:45 pm Patient Instructions: Depression (DC), Bleeding (DC), Preeclampsia and Eclampsia After Delivery (GEN), Hemorrhage (DC), OB Discharge Report, OB Food/Drug Interaction Guide, OB Care at Home, Opioid Safety, OB Home Care, OB Vaginal Deliveries - [facility] Discharge Attestations Time Spent in Discharge Care*: less than 30 min Quality Metrics Clinical Quality Measures [ No reported AMI, CVA or VTE this stay] Coding Level of Care Code Acute Code for Chg Fwd Diagnoses Pre-eclampsia added to pre-existing hypertension O11.9
[2022-10-23] MEDS: NIFEdipine ER (24 hr) 30 mg Tablet 60 MG PO (09:15)
[2022-10-23] MEDS: labetalol 200 mg Tablet 100 MG PO (09:15)
[2022-10-23] MEDS: docusate sodium 100 mg Capsule PO (09:16)
[2022-10-23] MEDS: prenatal vitamin Capsule 1 CAP PO (09:16)
[2022-10-23] MEDS: hydroCHLOROthiazide 25 mg Tablet PO (09:16)
[2022-10-23 10:01] VITALS: BP 137/94; PULSE 89
[2022-10-23 11:54] VITALS: BP 136/93; PULSE 86
[2022-10-23 11:55] VITALS: PULSE 89; O2SAT 97
[2022-10-23 12:00] VITALS: BP 136/93; PULSE 84; RESP 16; TEMP 36.8; O2SAT 98
[2022-10-23 12:17] VITALS: BP 136/93; PULSE 84; RESP 16; TEMP 36.8; O2SAT 98
--- NOTE | 2022-10-25 14:34 | ANE.PACU2 ---
Inpatient post-anesthesia follow up: Airway intact: Yes Vital signs: Temperature 98.3 F Pulse Rate 84 Respiratory Rate 16 Blood Pressure 136/93 Pulse Oximetry 98 Oxygen Delivery Me thod Room Air Oxygen Flow Rate Fraction of Inspir ed Oxygen Hydration adequate: Yes Nausea and vomiting: No Pain level: 2 Mental status: Baseline
== END 2022-10-23 12:10 | disposition home or self-care (01) | DRG 807 ==
LOC: OPOB 08:03 → OBGYN 08:04 → OPOB 16:50 → OBGYN 17:48
PROVIDERS: Obstetrics & Gynecology; Admitting Provider Obstetrics & Gynecology; Visit Provider Obstetrics & Gynecology
DX: O11.4 Pre-existing hypertension with pre-eclampsia, complicating childbirth (principal); Z37.0 Single live birth; O10.02 Pre-existing essential hypertension complicating childbirth; O70.9 Perineal laceration during delivery, unspecified; O90.89 Other complications of the puerperium, not elsewhere classified; R55 Syncope and collapse; Z3A.39 39 weeks gestation of pregnancy
CPT/HCPCS: 36415; 51702; 59025; 59409; 71045; 80053; 81001; 82570; 83735; 84156; 84550; 85025; 85027; 96374; 96376; 99211; J2405; J2590; J2765; J2795; J3475; J3490; J7120; J7121

== ENCOUNTER 2022-11-17 13:01 | Emergency (ER) | payer OTHER, BC, MEDICAID, SELFPAY ==
[2022-11-17 13:07] VITALS: BP 175/102; PULSE 87; RESP 16; TEMP 37.1; O2SAT 99; BMI 33.7
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
[2022-11-17 14:37] VITALS: PULSE 78; RESP 19; O2SAT 99
--- NOTE | 2022-11-22 15:41 | DCPLANNER ---
international project manager called patient due to no primary care physician, patient stated that she will call [facility] to get established, just moved to the area.
== END 2022-11-17 14:38 | disposition home or self-care (01) ==
PROVIDERS: Emergency Provider Physician Assistant
DX: Z04.1 Encounter for examination and observation following transport accident (principal); V89.2XXA Person injured in unspecified motor-vehicle accident, traffic, initial encounter
CPT/HCPCS: 99282

== ENCOUNTER 2023-03-16 09:52 | Emergency (ER) | payer BC, OTHER, SELFPAY ==
--- NOTE | 2023-03-16 09:54 | XR_ITS ---
WS: [id number] Exam: XR foot LT min 3V* [id number] Date/Time of Exam: 03/16/2023 10:10 AM Reason For Exam: injury Findings: The foot was examined in multiple views and reveals no fractures or displacements of bone. No bony a nomalies are noted. The bony elements are in adequate alignment. The joint spaces are smooth and eq uidistant. IMPRESSION: Negative LEFT foot.
[2023-03-16 10:10] VITALS: BP 147/93; PULSE 88; O2SAT 98
[2023-03-16 10:12] VITALS: BMI 24.2
--- NOTE | 2023-03-16 10:12 | W.ED.LOWEXIN ---
HPI - Extremity Injury (Lower) General: Chief Complaint: Extremity Injury, Lower Stated Complaint: injury left foot Time Seen by Provider: 03/16/23 09:54 Source: patient Mode of arrival: wheelchair Limitations: no limitations History of Present Illness: Patient is a 22-year-old female presents to ED today for evaluation of a left foot injury that she sustained yesterday after accidentally tripping and hyper-extending it. Has noticed swelling and painful weightbearing. MD complaint: foot injury Onset (ago): day(s) (yesterday) Injury: Left: foot Type of Injury: hyperextension Place: home Severity: moderate Relieving factors: immobilization Exacerbating factors: weight bearing, movement and palpation Associated symptoms: Reports no associated symptoms Other symptoms: none Review of Systems Musc: Reports: extremity pain (L foot) and extremity swelling (L foot); Denies: neck pain, back pain, joint pain, joint swelling, joint redness or joint warmth Neuro: Denies: numbness in extremities or sensory changes PFSH ED PFSH: Medical History Anxiety and depression She was diagnosed and treated with lexapro. She only used this for about 2 weeks, and stopped due to n/v. She feels managed without medication. Gestational hypertension without significant proteinuria during in third trimester, antepartum Herpes exposure No pertinent past medical history neghx: htn,dm,thyroid,dvt/pe PCP: None Normal vaginal delivery Pilonidal cyst Pilonidal cyst Pre-eclampsia added to pre-existing hypertension Rh incompatibility in , antepartum Surgical History Hx of wisdom tooth extraction (~08/2021) Family History Grandmother Breast cancer Maternal Great Grandmother-- dx age 50 Paternal Grandmother--dx age 40's Father Colon cancer dx age late 40s Hypercholesteremia Hypertension Denies family history of Ovarian cancer Diabetes Heart disease Uterine cancer Thyroid disease Stroke Physical Exam Const: COMMON NORMALS: no acute distress, average body habitus, patient oriented x3, no limitations, healthy appearing, alert and well nourished Extremity: COMMON NORMALS: capillary refill normal and no calf tenderness GENERAL: Yes normal exam except as noted LEFT LOWER EXTREMITY: Yes foot & digits (TTP and swelling noted to lateral dorsal L foot; no obvious deformity) Left foot and digits: Yes neurovascular exam (normal) and Yes tendon exam (normal) Neuro: COMMON NORMALS: patient oriented x3, moves all extremities, no focal motor deficits and no sensory deficits noted SENSORIUM/ORIENTATION: Yes alert Course Vital Signs: Vital signs: Vital Signs Temperature 98.0 F 03/16/23 10:14 Pulse Rate 92 03/16/23 10:14 Respiratory Rate 18 03/16/23 10:14 Blood Pressure 146/106 03/16/23 10:14 Pulse Oximetry 98 03/16/23 10:14 Oxygen Delivery Me thod Room Air 03/16/23 10:14 MDM - Extremity Injury (Lower) Medical Decision Making XR negative. Will BROOKE wrap. She has crutches at home. RICE therapy discussed. Followup with PCP in 2-3 weeks if symptoms do not seem to be improving. Discharge Plan Discharge Patient Disposition: Home Clinical Impression: Sprain of left foot Qualifiers: Encounter type: initial encounter Qualified Code(s): S93.602A - Unspecified sprain of left foot, initial encounter Condition: Stable Prescriptions: No Action valacyclovir [Valtrex] 500 mg tablet 500 mg PO BID Qty: 60 3RF nitrofurantoin monohyd/m-cryst [Macrobid] 100 mg capsule 100 mg PO BID Qty: 14 0RF Rx Instructions: Take 1 saadia po twice daily for 7 days. must administer with a meal/food docusate sodium 100 mg Capsule 100 mg PO BID Qty: 60 0RF nifedipine 30 mg Tablet Extended Release 24hr 60 mg PO DAILY Qty: 60 3RF labetalol 200 mg Tablet 100 mg PO BID Qty: 30 3RF Rx Instructions: Take with lunch and dinner ibuprofen 800 mg Tablet 800 mg PO TID Qty: 30 0RF hydrochlorothiazide 25 mg Tablet 25 mg PO DAILY Qty: 30 6RF Discharge Orders: Discharge ED (Routine); Ordered 03/16/23 Ordered By: Chaya Crowe Referrals: Lauren Michelle DO [Primary Care Provider] - Patient Instructions: Foot Sprain (ED), RICE Therapy Activity Restrictions/Additional Instructions: As we discussed weightbearing as tolerated. You indicated you have a pair crutches at home you can use as needed. Ice and elevation will help with swelling. Recommend [id number] anti-inflammatories such as ibuprofen or naproxen. You may follow-up with primary care in 2 to 3 weeks if symptoms do not seem to be improving. Coding Level of Care Code ED Food Production Manager for Jamila Horan
[2023-03-16 10:14] VITALS: BP 146/106; PULSE 92; RESP 18; TEMP 36.7; O2SAT 98
== END 2023-03-16 10:50 | disposition home or self-care (01) ==
PROVIDERS: Emergency Provider Physician Assistant; PCP Family Medicine
DX: S93.602A Unspecified sprain of left foot, initial encounter (principal); W18.40XA Slipping, tripping and stumbling without falling, unspecified, initial encounter
CPT/HCPCS: 73630; 99283

== ENCOUNTER 2023-09-04 18:16 | Emergency (ER) | payer BC, OTHER, MEDICAID, SELFPAY ==
[2023-09-04 18:22] VITALS: BP 137/86; PULSE 76; RESP 16; TEMP 36.7; O2SAT 99
--- NOTE | 2023-09-04 18:44 | W.ED.WOUNDLC ---
HPI - Wound/Laceration General: Chief Complaint: Wound/Laceration Stated Complaint: Lower back pain Time Seen by Provider: 09/04/23 18:32 History of Present Illness: 23-year-old female presents to the emergency department with her significant other. She states she has a history of pilonidal cyst and is currently having pain on her tailbone she does have a tract that is actively draining to the cleft and she does have an area that is swollen underneath the skin. She states she was supposed to have a second surgery to have her pilonidal cyst treated by Dr. Sharma and she stated she had planned on calling his office tomorrow to make an appointment. She denies fevers chills or night sweats. Review of Systems General: Reports: 10 or more systems reviewed and unremarkable except in HPI and below Skin/Breast: Reports: erythema, skin tenderness and other (Pilonidal cyst and sinus tract) [facility] ED PFSH: Medical History Anxiety and depression She was diagnosed and treated with lexapro. She only used this for about 2 weeks, and stopped due to n/v. She feels managed without medication. Gestational hypertension without significant proteinuria during in third trimester, antepartum Herpes exposure No pertinent past medical history neghx: htn,dm,thyroid,dvt/pe PCP: None Normal vaginal delivery Pilonidal cyst Pilonidal cyst Pre-eclampsia added to pre-existing hypertension Rh incompatibility in , antepartum Surgical History Hx of wisdom tooth extraction (~08/2021) Family History Grandmother Breast cancer Maternal Great Grandmother-- dx age 50 Paternal Grandmother--dx age 40's Father Colon cancer dx age late 40s Hypercholesteremia Hypertension Denies family history of Ovarian cancer Diabetes Heart disease Uterine cancer Thyroid disease Stroke Physical Exam Narrative: EXAM NARRATIVE: Constitutional: the patient appears well nourished and of normal development. Vital signs as documented. No acute distress at present. Alert and oriented-to person, place, time and situation. Head, eyes, ears, nose, mouth, throat: Normocephalic, atraumatic. Pupils-equal, round, reactive to light. No scleral icterus. Normal-appearing external ears. No nasal drainage. Neck: Supple, trachea is midline, no lymphadenopathy. Lungs: clear to auscultation to all lung weinstein. Symmetrical rise and fall of chest, no obvious signs of increased work of breathing at present. Cardiac: Regular rate and rhythm, positive S1, S2. No murmurs, rubs or gallops that I can appreciate Abdomen: Soft, non-tender to palpation, normal active bowel sounds to all quadrants. No palpable masses, no organomegaly and abdominal bruits. Extremities: 2+ pulses in the upper extremities that are equal bilaterally, 2+ pulses in the lower extremities that are equal bilaterally. Non-edematous. Moves all extremities well, sensation to all extremities are noted. Back: Patient does have a well-healed scar to the jane cleft, there is a area of fluctuation just inferior to the scar from her previous surgery. There does appear to be a draining sinus tract present. Skin: Warm, dry, intact. Course Vital Signs: Vital signs: Vital Signs Temperature 98.1 F 09/04/23 18:22 Pulse Rate 76 09/04/23 18:22 Respiratory Rate 16 09/04/23 18:22 Blood Pressure 137/86 09/04/23 18:22 Pulse Oximetry 99 09/04/23 18:22 Oxygen Delivery Me thod Room Air 09/04/23 18:22 MDM - Wound/Laceration Medical Decision Making Physical exam completed I will provide her by mouth antibiotic prescription as well as pain medication and also have included Dr. Sharma's office information. Medical Records I reviewed the patient's medical records. No radiology studies performed this visit Discharge Plan Discharge Patient Disposition: Home Clinical Impression: Abscess and cellulitis of gluteal region Condition: Stable Prescriptions: New hydrocodone-acetaminophen 5-325 mg tablet 1 tab PO Q8H PRN (Reason: pain) Qty: 14 0RF clindamycin HCl 300 mg capsule 300 mg PO TID 7 Days Qty: 21 0RF No Action valacyclovir [Valtrex] 500 mg tablet 500 mg PO BID Qty: 60 3RF nitrofurantoin monohyd/m-cryst [Macrobid] 100 mg capsule 100 mg PO BID Qty: 14 0RF Rx Instructions: Take 1 saadia po twice daily for 7 days. must administer with a meal/food docusate sodium 100 mg Capsule 100 mg PO BID Qty: 60 0RF nifedipine 30 mg Tablet Extended Release 24hr 60 mg PO DAILY Qty: 60 3RF labetalol 200 mg Tablet 100 mg PO BID Qty: 30 3RF Rx Instructions: Take with lunch and dinner ibuprofen 800 mg Tablet 800 mg PO TID Qty: 30 0RF hydrochlorothiazide 25 mg Tablet 25 mg PO DAILY Qty: 30 6RF Discharge Orders: Discharge ED (Routine); Ordered 09/04/23 Ordered By: Cr Jc Referrals: Lauren Michelle DO [Primary Care Provider] - Nate Sharma DO [Physician] - Discharge Diet: Usual diet Discharge Activity: Resume usual activity Patient Instructions: Opioid Safety, Pain Management Activity Restrictions/Additional Instructions: Activity Restrictions/Additional Instructions: Thank you for choosing [facility] for your healthcare needs today. Please realize that you were seen in the Emergency Department and that we are providing you with an emergency medical screening exam and this may not be a complete and all inclusive of all the testing and or medical work-up that you may need to determine your ailment or severity of your illness. It is very important that you follow-up as instructed with your Primary care provider or Specialist for additional evaluation and to discuss your medical treatment plan. Coding Level of Care Code ED [employer] Superintendent for Jamila Horan
[2023-09-04 19:30] VITALS: BP 136/86; PULSE 90; O2SAT 99
== END 2023-09-04 19:31 | disposition home or self-care (01) ==
PROVIDERS: Emergency Provider Internal Medicine; PCP Family Medicine
DX: L02.31 Cutaneous abscess of buttock (principal); L03.317 Cellulitis of buttock
CPT/HCPCS: 99283

== ENCOUNTER 2024-08-28 10:25 | Outpatient (CLI) | payer BC, MEDICAID, SELFPAY ==
--- NOTE | 2024-08-28 10:30 | USR_ITS ---
PROCEDURE INFORMATION: Exam: US Bilateral Noninvasive Physiologic Study of the Lower Extremity Arteries, Limited Exam date and time: 08/28/2024 11:27 AM Age: 24 years old Clinical indication: Pain; Arm, upper and leg, upper; Bilateral; Additional info: Arm and leg pain TECHNIQUE: Imaging protocol: Bilateral Limited bilateral noninvasive physiologic studies of lower extremity arteries. Waveforms were obtained and evaluated. Images were documented and archived. Exam is limited. COMPARISON: US soft tissue/extremity [id number] 09/25/2022 3:05 PM FINDINGS: Right Ankle-Brachial Index: 1.02 I Left Ankle-Brachial Index: 0.91 US/CV ankle brachial index [id number] IMPRESSION: No evidence of stenosis or occlusion in the lower extremity.
== END 2024-08-28 10:26 | disposition home or self-care (01) ==
LOC: RAD 10:26
PROVIDERS: PCP Family Medicine; Visit Provider Nurse Practitioner Family
DX: M79.603 Pain in arm, unspecified (principal); M79.606 Pain in leg, unspecified; R29.898 Other symptoms and signs involving the musculoskeletal system; Z91.018 Allergy to other foods
CPT/HCPCS: 93922

== ENCOUNTER 2024-09-02 12:16 | Outpatient (CLI) | payer BC, MEDICAID, SELFPAY ==
--- NOTE | 2024-09-02 12:19 | MR_ITS ---
WS: [id number] MRI HEAD WITHOUT CONTRAST TECHNIQUE: Sagittal T1, T2 axial, T2 axial FLAIR, axial and coronal T1 images, axial susceptibility weighted imaging, axial diffusion weighted images, and coronal T2 images were obtained. CLINICAL INFORMATION: HEADACHES COMPARISON: None. FINDINGS: No evidence of restricted diffusion to suggest acute ischemia. Ventricular system and basilar cisterns are patent. No suspicious intracranial signal abnormalities. Normal castellanos-white differentiation. Normal posterior fossa. Normal vascular flow voids at the skull base. No extra-axial fluid collections. No evidence of mass or mass effect. Mild mucosal thickening in the ethmoid air cells. Mastoid air cells are well aerated. No hemosiderin on the susceptibility weighted images. Normal optic chiasm and pituitary infundibulum. Temporal lobes and hippocampal formations are normal in appearance. No other suspicious findings. MR/MR head wo con* [id number] IMPRESSION: 1. No evidence of restricted diffusion to suggest acute ischemia. 2. No suspicious intracranial signal abnormalities. Normal castellanos-white differen tiation. 3. 1 or 2 tiny foci of T2 signal abnormality in the LEFT frontal subcortical w kadie matter can be seen with migraine headaches. 4. No hemosiderin on the susceptibly weighted images. 5. Mild mucosal thickening in the ethmoid air cells. 6. No other acute findings.
== END 2024-09-02 12:17 | disposition home or self-care (01) ==
LOC: RAD 12:16
PROVIDERS: PCP Family Medicine; Visit Provider Nurse Practitioner Family
DX: R51.9 Headache, unspecified (principal); R29.898 Other symptoms and signs involving the musculoskeletal system; R93.0 Abnormal findings on diagnostic imaging of skull and head, not elsewhere classified
CPT/HCPCS: 70551

== ENCOUNTER 2025-02-15 22:03 | Emergency (ER) | payer BC, MEDICAID, SELFPAY ==
--- OUTSIDE RECORDS SUMMARY | 2016-08-21 09:20 | XMS_ITS | Continuity of Care Document ---
Author Organization [facility] [employer] [facility] Address [address] [place] [address] Phone Care Team Providers Care Microsoft Bi Consultant Name Role Phone Paresh De Jesus DO Unavailable Unavailable Allergies, Adverse Reactions, Alerts Substance Reaction Status Criticality No Known Allergies Active No Inform ation Medications Medication Instructions Dosage Effective Dates (start - stop) Status Comments Sudafed 12 Hour 120 mg tablet,extended release take 1 tablet by oral route every 12 hours 120 MG - Active loratadine 10 mg tablet take 1 tablet by oral route every day 10 MG - Active over the counter ciprofloxacin 500 mg tablet take 1 tablet by oral route every 12 hours 500 MG - No Longer Active Problems Condition Type Effective Dates (start - stop) Clini bhavya Status Comments No Known Problems Procedures Procedure Date URINALYSIS, AUTO, W/O SCOPE OFFICE/OUTPATIENT VISIT, EST OFFICE/OUTPATIENT VISIT, EST PREV VISIT, NEW, AGE 12-17 Advance Directives Directive Yes / No Effective Date File Name No Information Encounters Encounter Description Practice Location Reason(s) For Visit Diagnoses Date Provider Providers Copied on Encounter [facility] [employer] [facility], [address] [facility], [place], [place], [id number], [place] tel:[phone] [facility] No Information 201 7 Neal Yoder. [address] [facility] Jay[place], [id number] , [place]. tel:[phone] OFFICE/OUTPA TIENT VISIT, [facility], [facility] [place], [place], [id number], [place] tel:[phone] [facility] Back pain (chief complaint) Musculoske letal pain (chief complaint) nausea (chief complaint) Dietary counseling and surveillanceHematur iaUrinary tract infection, site unspecifiedAcute pain of right shoulder 0 7 Neal Yoder. [facility] Jay[place], [id number] , [place]. tel:[phone] [facility], [address] [place] [address], [id number], [place] tel:[phone] [facility] No Information 6 Katharina Latham. [facility] SHELLIE Guevara, [id number] . tel: [phone] OFFICE/OUTPA TIENT VISIT, [facility], [facility] [place], [place], [id number], [place] tel:[phone] [facility] Dizziness (chief complaint) Dizziness - light-headedDisease of hair and hair follicle 5 Angel Luis Greenberg. [address] [facility] Jay[place], [id number] , [place]. tel:[phone] PREV VISIT, NEW, AGE 12-17 [facility], [address] [place] [address], [id number], [place] tel:[phone] [facility] Well Child (chief complaint) sports physical (chief complaint) Well ChildWell Child 3 0 4 Mike Hall. [facility] [place] Guevara, [address]. tel:[phone] Family History Family Member Type Diagnosis Age At Onset Maternal grandmother Problem (finding) Diabetes mellit us Paternal grandmother Problem (finding) Diabetes mellit Paternal grandfather Problem (finding) Diabetes mellit us Maternal aunt Problem (finding) malignant neop lasm of breast in first degree relative Immunizations Vaccine Date Status Comments MCV4 administered Note: show me v ax ; Source: Source Unspecified Tdap administered Source: Other P rovider MMR administered Source: Other P rovider HIB - unspecified administered Source: Ot her Provider polio, inactivated (IPV) administered Judie rce: Other Provider DTaP administered Source: Other P rovider varicella administered Source: Other P rovider DTaP administered Source: Other P rovider MMR administered Source: Other P rovider HIB - unspecified administered Source: Ot her Provider polio, inactivated (IPV) administered Judie rce: Other Provider DTaP administered Source: Other P rovider hep B (ped/adol, 3 dose) administered Judie rce: Other Provider HIB - unspecified administered Source: Ot her Provider polio, inactivated (IPV) administered Judie rce: Other Provider DTaP administered Source: Other P rovider hep B (ped/adol, 3 dose) administered Judie rce: Other Provider HIB - unspecified administered Source: Ot her Provider polio, inactivated (IPV) administered Judie rce: Other Provider DTaP administered Source: Other P rovider hep B (ped/adol, 3 dose) administered Judie rce: Other Provider Payers Payer name Insurance type Covered republican ID Authoriza tion(s) No Information Social History Type Description Quantity Date Captured Comments Alcohol Use Details Unknown Caffeine Use Details Unknown Tobacco Use Status No Information Smoking Status No Information Sex Female Gender Identity Female Chief Complaint And Reason For Visit No Information Reason For Referral Reason For Referral No Information Plan Of Treatment Date Type Action Status Goal Dietary management education , guidance, and counseling completed Goal Dietary management education , guidance, and counseling completed History Of Present Illness Encounter Date Complaint History Of Presakira nt Illness Back pain Location of pain is lower back. Additional information: Went to sleep at 10:30PM last night woke up at 11:00PM she felt nausea and the right side of her back hurt, denies urinary symptoms or vaginal discharge. No history of UTI's. Musculoskeletal pain Onset: 1 da y ago. Location: right shoulder. 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 nausea Dizziness Onset was 2 week s ago. The problem is worsening. It occurs intermittently. The patient describes it as (an) light-headed. Associated symptoms include headache and nausea. Pertinent negatives include chest pain, ear drainage, fever, loss of consciousness, neck stiffness, otalgia, palpitations, tinnitus, vision loss and vomiting. Additional information: had URI about 3 weeks ago, having regular periods LMP was 08/30/14. Denies sexual activity. Dizziness comes and goes in a matter of seconds, feels a little nauseated afterwards. Denies any alcohol, monster drinks, smoking or illecit drug use. Well Child Doing well denie s problems. No major health concerns. Mother states that her immunizations are UTD but has copy at home urged her to bring copy in and consider getting Gardasil. sports physical Plays softball, baseball, and track. Has only had one injury it was in November 2013 dislocated L knee cap. It has resolved without problems. Functional Status Date Functional Assessmen t No Information Instructions Date Instruction Additional Infor mation Ciprfloxin x 10 days Watch for worse pain, fever and chills go to the ER Related to Urinary tract infection, site unspecified Dietary management e ducation, guidance, and counseling Related to Dietary counseling and surveillance Giving encouragement to exercise Related to Dietary counseling and surveillance Warm moist wash clot h to the area twice dailyAvoid popping or squeezingFollow up if becomes red, larger, more painful Related to Disease of hair and hair follicle Will treat for now a s an inner ear disturbanceSudafed twice daily and over the counter loratadine 10mg dailyMake sure you are drinking plenty of fluidsChange positions slowlySmall frequent mealsFollow up as needed for worsening/persistent symptoms Related to Dizziness - light-headed Giving encouragement to exercise Related to Body Mass Index 29.0-29.9, adult Symptomatic care. Related to Diz ziness - light-headed Call if symptoms persist. Relate d to Dizziness - light-headed Dietary management e ducation, guidance, and counseling Related to Body Mass Index 29.0-29.9, adult Age appropriate diet discussed (15-21 years) Related to routine infant/child health checkup Age appropriate safe ty discussed (15-21 years) Related to routine infant/child health checkup Oral Health Discussed (15-21 yea rs) Related to routine /child health checkup Continue to play spo rts make sure to stretch, warm up and cool down Related to Well Child Increase physical ac tivity to at least an hour a day. Related to Well Child Maintain healthy eating Related to Well Child Use seat belts at al l times when in or on vehicles Related to Well Child Blunt teeth 2 times a day and floss daily Related to Well Child Follow-up in a year. Related to Well Child Assessments Type Assessment Date No Information Patient Care Teams Name Effective Dates (start - stop) Status Members No Information
--- OUTSIDE RECORDS SUMMARY | 2021-12-07 03:36 | XMS_ITS | Continuity of Care Document ---
Author Organization [facility] Address [address] [place] [address] Phone Care Team Providers Care Defensive Secondary Coach Name Role Phone Mares DOCTOR OF OSTEOPATHY-C DOCTOR OF OSTEOPATHY-C, Yoko Unavailable Un available Allergies, Adverse Reactions, Alerts Substance Reaction Status Criticality No Known Allergies Active No Inform ation Medications Medication Instructions Dosage Effective Dates (start - stop) Status Comments cefdinir 300 mg capsule take 1 capsule by oral route every 12 hours 300 MG - Active Procedures Procedure Date X-RAY EXAM ABDOMEN 2 VIEWS HYDRATION IV INFUSION, INIT OFFICE/OUTPATIENT VISIT, EST ASSAY OF AMYLASE COMPLETE CBC W/AUTO DIFF WBC COMPREHEN METABOLIC PANEL ASSAY OF LIPASE URINALYSIS, AUTO, W/O SCOPE OFFICE/OUTPATIENT VISIT, EST MED SERV, URGENT CARE GAIL/WKEND/HOLIDAY Decadron Dexamethasone sodium phos Per 1 Mg Inj Depo Medrol Methylprednisolone 80 MG inj OFFICE/OUTPATIENT VISIT, NEW THER/PROPH/DIAG INJ, SC/IM Advance Directives Directive Yes / No Effective Date File Name No Information Encounters Encounter Description Practice Location Reason(s) For Visit Diagnoses Date Provider Providers Copied on Encounter [facility], [address] [place] [address], [id number], [place] tel:[phone] [facility] No Information 2 Vishnu Babcock. [address] [place] [address], [id number], [place]. tel:[phone] OFFICE/OUTPA TIENT VISIT, EST [facility], [address] [place] [address], [id number], [place] tel:[phone] [facility] abdominal pain (chief complaint) Nausea and vomiting (chief complaint) Nausea with vomiting, unspecifiedUppe r abdominal pain, unspecifiedDiar rheaContact w and exposure to oth viral communicable diseases 2 Vishnu Babcock. [address] [place] [address], [id number], [place]. tel:[phone] Referring Provider: Yoko Morales, [address] [place] [address], [id number]. tel:[phone] OFFICE/OUTPA TIENT VISIT, EST [facility], [address] [place] [address], [id number], [place] tel:[phone] [facility] Medicine [facility] cold symptoms (chief complaint) Sinusitis, Acute 3 No Information OFFICE/OUTPA TIENT VISIT, [facility], [address] [place] [address], [id number], [place] tel:[phone] [facility] sore throat (chief complaint) fever (chief complaint) vomiting (chief complaint) Acute upper respiratory infections of other multiple sites 3 Anisa Oh. [address] [place] [address], [id number], [place]. tel:[phone] Referring Provider: Adriano Rivera, [address] [place] [address], [id number] . tel:[phone] Family History Family Member Type Diagnosis Age At Onset Mother Problem (finding) Alive and well 34 Maternal grandfather Problem (finding) Renal disease 5 3 Brother Problem (finding) Alive and well 15 Sister Problem (finding) Alive and well 10 Paternal grandmother Problem (finding) Car Wreck 55 Father Problem (finding) Alive and well 43 Payers Payer name Insurance type Covered libertarian ID Shivam massey(s) [facility] [id number] CI [id number] Social History Type Description Quantity Date Captured Comments Alcohol Use Details Unknown Caffeine Use Details Unknown Tobacco Use Status No Information Smoking Status No Information Sex Female Chief Complaint And Reason For Visit No Information Reason For Referral Reason For Referral No Information History Of Present Illness Encounter Date Complaint History Of Prese nt Illness Nausea and vomiting Onset: 1 day ago. Severity level is: moderate. Duration: varies. The patient describes it as projectile. The problem is worse. Denies aggravating factors. Denies relieving factors. Associated symptoms include abdominal pain, fever, nausea and vomiting. Pertinent negatives include anorexia, bloating, blood in stool, cramping (abdominal), decreased urine output, dehydration, distention (abdominal), fecal incontinence, flatulence, joint pain, rash, tenesmus and weight loss. abdominal pain Onset: 1 Day. Th e problem is severe. The problem has worsened. The symptoms are constant. The location is midline. The patient reports radiation to the back. The quality of the pain is achy and sharp. The patient denies aggravating factors. The patient denies relieving factors. Associated symptoms include fever, nausea and vomiting. Pertinent negatives include back pain, bloating, blood in stool, change in appetite, constipation, diaphoresis, diarrhea, dizziness, dyspnea, eructation, flank pain, flatulence, heartburn, hematuria, jaundice, lightheadedness, myalgia, rash, vaginal bleeding, vaginal discharge, weight gain and weight loss. cold symptoms Onset: 1 Week Ag o. The describes the cough as moist and productive (of clear sputum). It occurs persistently. The problem has become gradually worse. Context: allergies, exposure to strep and sick family member. There are no aggravating factors. There are no relieving factors. Associated symptoms include chills, cough, fatigue, fever, hoarseness, nasal congestion, post-nasal drainage, rhinitis, sore throat, vomiting and otalgia. Pertinent negatives include weight loss. The patient has a history of allergies. The patient does not have a history of asthma. sore throat Onset: 2 Days. T he severity of the problem is moderate. Pain scale: 5/10. The problem has worsened. The symptoms are persistent. Symptoms are associated with exposure to strep and recent cold. Aggravating factors include lying down. Associated symptoms include chills/rigors, cough, fatigue, fever, headache and postnasal drainage. fever Onset: 2 Days Ag o. Maximum temperature = 104 deg. F. Duration is 2 Days. The patient describes it as recurrent. It occurs intermittently. The status is worse. Context: exposure to illness at school. Associated symptoms include cough. vomiting Onset: 2 Days. T he severity of the problem is moderate. Pain scale: 5/10. The symptoms are recurring. These symptoms do not occur after recent foreign travel. Aggravating factors include exercise and movement. Symptoms are relieved by vomiting. Associated symptoms include fever and vomiting. Functional Status Date Functional Assessmen t No Information Instructions Date Instruction Additional Infor jean claude 1. Molecular COVID-n egative2. UA with culture-+2 bacteria+Protein+blood3. Abdominal X ray-Negative4. CBC, CMP, amylase, lipase-WBC 21.99 H-Sodium 132 L-amylase and lipase WNL5. IV fluidsX 2 liters6. Cefdinir 300mg PO BID X 7 days7. Continue on Zofran PRN8. F/u with PCP in 2 days for labs and evaluation or go to ER if worsens9. Fluids, [id number] IV started in left AC without complication. Blood drawn from IV start. IV started at 15:00. Related to Nausea with vomiting, unspecified Assessments Type Assessment Date No Information Patient Care Teams Name Effective Dates (start - stop) Status Members No Information
[2025-02-15 22:22] VITALS: BP 134/89; PULSE 68; RESP 18; TEMP 36.8; O2SAT 98; BMI 28.5
[2025-02-15 23:24] LABS: Hematocrit 34.2 % (36-47); Hemoglobin 11.30 g/dL (11.27-16.99); Mean Corpuscular HGB Conc 33.0 g/dL (30-55); Mean Corpuscular Hemoglobin 31.5 pg (27-33); Mean Corpuscular Volume 95.3 fl (85-98); Nucleated Red Blood Cells % 0 %; Platelet Count 289 10^3/cmm (157-399); Red Blood Count 3.59 10^6/uL (3.85-5.65); White Blood Count 10.15 10^3/uL (3.29-11.43)
[2025-02-15 23:38] LABS: HCG, Serum Qual Negative (Negative)
[2025-02-15 23:40] LABS: Alanine Aminotransferase 9 U/L (0-33); Albumin Level 4.1 g/dL (3.5-5.2); Alkaline Phosphatase 88 U/L (35-105); Anion Gap 14.3 (5-19); Aspartate Amino Transferase 12 U/L (0-32); Blood Urea Nitrogen 6 mg/dL (6-20); Calcium 9.1 mg/dL (8.5-10.5); Carbon Dioxide 25 mmol/L (22-29); Chloride 105 mmol/L (98-107); Creatinine Clr Calc Pharmacy 113.7593; Globulin 3.2 g/dL (1.3-4.6); Glucose 91 mg/dL (65-115); Lipase 18 U/L (13-60); Osmolality Calculated 287 mOsm/kg (285-295); Potassium 4.3 mmol/L (3.5-5.1); Sodium 140 mmol/L (136-145); Total Protein 7.3 g/dL (6.6-8.7)
[2025-02-15 23:54] LABS: Glucose Urine UA Negative (Normal); Nitrate Urine Negative (Negative); Specific Gravity, Urine 1.003 (1.005-1.030)
[2025-02-15 23:57] LABS: Add Urine Microscopic? YES
[2025-02-16 01:08] VITALS: BP 129/85; PULSE 60; RESP 16; O2SAT 99
--- NOTE | 2025-02-16 01:13 | XRR_ITS ---
PROCEDURE INFORMATION: Exam: XR Complete Acute Abdomen Series Including Chest Exam date and time: 02/16/2025 1:20 AM Age: 24 years old Clinical indication: Constipation; Abdominal pain; Prior surgery; Surgery date: 6+ months; Surgery type: Pilonidal cyst incision and drainage; Worsening back pain radiating to right upper abdomen and nausea that began approx 10 am this morning. ; Additional info: Abd pain/constipation TECHNIQUE: Imaging protocol: Radiologic exam. Complete acute abdomen series, including 2 or more views of the abdomen and a single view chest. COMPARISON: CR XR chest 1V portable [id number] 10/20/2022 7:00 PM FINDINGS: Lungs: Normal. No consolidation. Pleural spaces: Normal. No pleural effusions. No pneumothorax. Heart/Mediastinum: Normal. No cardiomegaly. Gastrointestinal tract: Bowel gas pattern is nonspecific and nonobstructive. No bowel dilation. Moderate volume of stool present. Intraperitoneal space: Normal. No free air. Bones/joints: Normal. No acute fracture. Soft tissues: Normal. XR/XR acute abdomen series [id number] IMPRESSION: No acute findings. Only a moderate volume of stool is present.
--- NOTE | 2025-02-16 01:13 | W.ED.ABDPA2 ---
HPI - Abdominal Pain General: Chief Complaint: Abdominal Pain Stated Complaint: abd and back pain n/v Time Seen by Provider: 02/15/25 23:55 History of Present Illness: 24-year-old female presents to the emergency room with complaints of back pain and nausea began at 10:00 this morning. She has had frequent kidney infections in the past. She also has some constipation no vomiting but very nauseous no fever no hematochezia melena hematemesis coffee-ground emesis no hematuria. She has NOT had appendectomy or cholecystectomy in the past Associated Symptoms: Reports constipation and nausea; Denies chills, coffee ground emesis, dysuria, fever(s), hematochezia, hematemesis, melena and vomiting Related Data Home Medications ?Medication ?Instructions ?Recorded ?Confirmed gabapentin 600 mg tablet 600 mg PO BID 10/30/24 10/30/24 Previous Rx's ?Medication ?Instructions ?Recorded diaphragms, contoured 65 mm-80 mm #1 ea 10/30/24 vaginal (Caya Contoured) cephalexin 500 mg tablet 500 mg PO TID 7 days #21 tabs 02/16/25 Allergies Allergy/AdvReac Type Severity Reaction Status Date / Time Latex, Natural Rubber Allergy Intermediate hives Verified 10/30/24 10:53 Alpha-Gal Allergy Mild ALGY-Bliste Verified 10/30/24 10:53 ([id number],3-Gala r Review of Systems Const: Denies: fever(s) or chills Card: Denies: chest pain Resp: Denies: dyspnea GI: Reports: abdominal pain, nausea and constipation; Denies: vomiting, hematemesis, coffee ground emesis, hematochezia or melena : Denies: dysuria, urinary frequency or urinary urgency Musc: Denies: neck pain or back pain Skin/Breast: Denies: rash PFSH ED PFSH: Medical History Pilonidal cyst Herpes exposure Anxiety and depression She was diagnosed and treated with lexapro. She only used this for about 2 weeks, and stopped due to n/v. She feels managed without medication. No pertinent past medical history neghx: htn,dm,thyroid,dvt/pe PCP: None Surgical History History of incision and drainage Dr Dean Incision and drainage of infected pilonidal cyst and left buttock induration- 09/09/22 Hx of wisdom tooth extraction (~08/2021) Family History Grandmother Breast cancer Maternal Great Grandmother-- dx age 50 Paternal Grandmother--dx age 40's Father Colon cancer dx age late 40s Hypercholesteremia Hypertension Denies family history of Ovarian cancer Diabetes Heart disease Uterine cancer Thyroid disease Stroke Social History Smoking and tobacco/nicotine status: current every day tobacco/nicotine user (vape use) Physical Exam Const: COMMON NORMALS: no acute distress GENERAL APPEARANCE: cooperative and comfortable ORIENTATION/CONSCIOUSNESS: Yes awake, Yes oriented to person, Yes oriented to place and Yes oriented to time HENMT: COMMON NORMALS: normocephalic, atraumatic and hearing grossly normal bilaterally HEAD & SCALP: normocephalic and atraumatic Resp: COMMON NORMALS: normal respiratory effort, No retractions, No use of accessory muscles and clear to auscultation bilaterally AUSCULTATION: clear to auscultation bilaterally Cardio: COMMON NORMALS: regular rate, regular rhythm and No murmurs present (Cardio) RATE: regular rate RHYTHM: regular rhythm GI: COMMON NORMALS: Soft to palpation and No hepatosplenomegaly present AUSCULTATION: Yes normoactive bowel sounds PALPATION: Yes Soft to palpation, No Tenderness to palpation present (GI), No Guarding due to palpation present (GI) and Yes No hepatosplenomegaly present Extremity: COMMON NORMALS: normal to inspection, capillary refill normal, no clubbing, cyanosis or edema, no calf tenderness and no pedal edema Neuro: SENSORIUM/ORIENTATION: Yes oriented to person, Yes oriented to place and Yes oriented to time Skin: COMMON NORMALS: no rashes or lesions noted GENERAL SKIN EXAM: no rashes or lesions noted Course Vital Signs: Vital signs: Vital Signs Temperature 98.3 F 02/15/25 22:22 Pulse Rate 61 02/16/25 02:24 Respiratory Rate 16 02/16/25 02:24 Blood Pressure 120/76 02/16/25 02:24 Pulse Oximetry 98 02/16/25 02:24 Oxygen Delivery Me thod Room Air 02/16/25 01:30 MDM - Abdominal Pain Medical Decision Making Patient has a mild cystitis. No leukocytosis chemistries are normal. Flat and upright of the abdomen only showed moderate stool retention. Discharge home on oral antibiotics laxatives as needed follow-up as needed Medical Records I reviewed the patient's medical records. Lab Data I reviewed the patient's lab results. 02/15/25 23:17 02/15/25 23:17 Labs/Radiology: Radiology Impressions Chest/Abdomen X-ray 02/16/25 01:13 IMPRESSION: No acute findings. Only a moderate volume of stool is present. Laboratory Results WBC 10.15 10^3/uL (3.29-11.43) 02/15/25 23:17 RBC 3.59 10^6/uL (3.85-5.65) L 02/15/25 23:17 Hgb 11.30 g/dL (11.27-16.99) 02/15/25 23:17 Hct 34.2 % (36-47) L 02/15/25 23:17 MCV 95.3 fl (85-98) 02/15/25 23:17 MCH 31.5 pg (27-33) 02/15/25 23:17 MCHC 33.0 g/dL (30-55) 02/15/25 23:17 RDW 11.9 % (12.1-15.1) L 02/15/25 23:17 Plt Count 289 10^3/cmm (157-399) 02/15/25 23:17 MPV 9.8 fL (7.4-10.4) 02/15/25 23:17 Neut % (Auto) 66.6 % 02/15/25 23:17 Lymph % (Auto) 20.7 % 02/15/25 23:17 Kimble % (Auto) 6.9 % 02/15/25 23:17 Eos % (Auto) 4.7 % 02/15/25 23:17 Baso % (Auto) 0.8 % 02/15/25 23:17 Neut # (Auto) 6.76 10^3/uL (1.8-7.7) 02/15/25 23:17 Lymph # (Auto) 2.1 10^3/uL (0.8-4.8) 02/15/25 23:17 Kimble # (Auto) 0.7 10^3/uL (0.2-0.9) 02/15/25 23:17 Eos # (Auto) 0.5 10^3/uL (0.0-0.8) 02/15/25 23:17 Baso # (Auto) 0.1 10^3/uL (0.0-0.1) 02/15/25 23:17 Nucleated RBC % (auto) 0 % 02/15/25 23:17 Nucleated RBCs # 0.0 /100WBC 02/15/25 23:17 Sodium 140 mmol/L (136-145) 02/15/25 23:17 Potassium 4.3 mmol/L (3.5-5.1) 02/15/25 23:17 Chloride 105 mmol/L (98-107) 02/15/25 23:17 Carbon Dioxide 25 mmol/L (22-29) 02/15/25 23:17 Anion Gap 14.3 (5-19) 02/15/25 23:17 BUN 6 mg/dL (6-20) 02/15/25 23:17 Creatinine 0.8 mg/dL (0.5-0.9) 02/15/25 23:17 GFR Calculation 86.7 mL/min (90-130) L 02/15/25 23:17 Glucose 91 mg/dL (65-115) 02/15/25 23:17 Calculated Osmolality 287 mOsm/kg (285-295) 02/15/25 23:17 Calcium 9.1 mg/dL (8.5-10.5) 02/15/25 23:17 Total Bilirubin 0.4 mg/dL (0.15-1.2) 02/15/25 23:17 AST 12 U/L (0-32) 02/15/25 23:17 ALT 9 U/L (0-33) 02/15/25 23:17 Alkaline Phosphatase 88 U/L (35-105) 02/15/25 23:17 Total Protein 7.3 g/dL (6.6-8.7) 02/15/25 23:17 Albumin 4.1 g/dL (3.5-5.2) 02/15/25 23:17 Globulin 3.2 g/dL (1.3-4.6) 02/15/25 23:17 Lipase 18 U/L (13-60) 02/15/25 23:17 HCG, Qual Negative (Negative) 02/15/25 23:17 Urine Color Yellow (Yellow) 02/15/25 23:00 Urine Appearance Clear (CLEAR) 02/15/25 23:00 Urine pH 6.0 (5-7) 02/15/25 23:00 Ur Specific Cuthbert 1.003 (1.005-1.030) L 02/15/25 23:00 Urine Protein Negative (Negative) 02/15/25 23:00 Urine Glucose (UA) Negative (Normal) 02/15/25 23:00 Urine Ketones Negative (Negative) 02/15/25 23:00 Urine Blood 1+ (Negative) A 02/15/25 23:00 Urine Nitrate Negative (Negative) 02/15/25 23:00 Urine Bilirubin Negative (Negative) 02/15/25 23:00 Urine Urobilinogen 0.2 mg/dL (Negative) 02/15/25 23:00 Ur Leukocyte Esterase 1+ (Negative) A 02/15/25 23:00 Urine RBC 0-2 /hpf (0-2) 02/15/25 23:00 Urine WBC 11-20 /hpf (0-5) H 02/15/25 23:00 Ur Squamous Epith Cells 0-5 /hpf (0-5) 02/15/25 23:00 Amorphous Sediment Not Reportable 02/15/25 23:00 Urine Bacteria 1+ /hpf (NONE) H 02/15/25 23:00 Hyaline Casts 0-4 /lpf H 02/15/25 23:00 All radiology interpretation(s) finalized by discharge Discharge Plan Discharge Patient Disposition: Home Clinical Impression: Cystitis Condition: Stable Prescriptions: New cephalexin 500 mg tablet 500 mg PO TID 7 Days Qty: 21 0RF No Action gabapentin 600 mg tablet 600 mg PO BID (DME) Caya Contoured 65-80 mm diaphragm See Rx Instructions .Route Qty: 1 0RF Rx Instructions: As directed Discharge Orders: Discharge ED (Routine); Ordered 02/16/25 Ordered By: Bacilio Soares Referrals: Lauren Michelle DO [Primary Care Provider, DIRECTOR EMPLOYEE SAFETY AND HEALTH] Discharge Diet: Usual diet Discharge Activity: Resume usual activity Patient Instructions: Urinary Tract Infection in Women (ED), Opioid Safety, Pain Management, Patient Portal & Ara Instructions Activity Restrictions/Additional Instructions: Thank you [facility] choosing [facility] your healthcare needs today. It is very important that you follow up as instructed or that you return to the Emergency Department should you have concerns or if your condition changes or worsens in any way. You are seen in the emergency room with complaints of abdominal pain. There is a large amount of stool in the colon on the films taken you do have a bladder infection there is no significant elevation of your white count. You are given a dose of antibiotics in the emergency room and discharged home with a oral prescription for antibiotics follow-up with your primary care doctor Print Language: Tongan Coding Level of Care Code ED Technical Adjuster for Jamila Horan
[2025-02-16 01:30] VITALS: BP 128/97; PULSE 62; RESP 16; O2SAT 99
[2025-02-16] MEDS: cefTRIAXone 1,000 mg SDV 1000 MG IVP (01:55)
[2025-02-16 02:24] VITALS: BP 120/76; PULSE 61; RESP 16; O2SAT 98
== END 2025-02-16 02:25 | disposition home or self-care (01) ==
PROVIDERS: Emergency Medicine; Emergency Provider Family Medicine; PCP Family Medicine
DX: N30.90 Cystitis, unspecified without hematuria (principal); F17.290 Nicotine dependence, other tobacco product, uncomplicated
CPT/HCPCS: 36415; 74022; 80053; 81001; 83690; 84703; 85025; 87077; 87086; 87186; 96374; 99284; J0696